=== PATIENT | male | born 1965 | race Two or more races ===

== ENCOUNTER 2020-07-16 06:42 | Day surgery (SDC) | payer BC, OTHER ==
[2020-07-16] MEDS ORDERED: Propofol 200 MG/20 ML SDV ONE (06:47)
[2020-07-16] MEDS ORDERED: fentaNYL 100 MCG/2 ML SDV ONE (06:47)
[2020-07-16] MEDS ORDERED: Midazolam 1 MG/ML 2 ML SDV ONE (06:47)
[2020-07-16] MEDS ORDERED: Dextrose 5%-Lactated Ringers 1,000 ML IV SCH (07:00)
[2020-07-16 09:01] VITALS: BP 136/88; PULSE 81
--- NOTE | 2020-07-27 15:23 | OR ---
DATE OF PROCEDURE: 07/16/2020 SURGEON: Moses Conti MD PREOPERATIVE DIAGNOSIS: Severe gastroesophageal reflux disease with focal changes. POSTOPERATIVE DIAGNOSIS: Severe gastroesophageal reflux disease with: 1. Generally inflamed laryngopharynx. 2. Diffuse gastritis secondary to diabetic gastroparesis with large intragastric bezoar. OPERATIVE PROCEDURE: Esophagogastroduodenoscopy with: 1. Biopsy of the esophagogastric junction for histologic evaluation. 2. Biopsies of antrum for CLOtest. ANESTHESIA: IV sedation. INDICATION FOR PROCEDURE: This is a 55-year-old male presenting with ongoing vocal changes. These were thought be related to reflux disease. He does have quite a bit in the way of ongoing heartburn, despite ongoing medical management. The plan is to proceed with upper GI endoscopy with biopsies as indicated. Potential risks including bleeding and perforation were discussed, and the patient wishes to proceed. DETAILS OF PROCEDURE: The patient was taken to the operating room and placed in a left lateral decubitus position. IV sedation was administered, after which the upper GI endoscope was passed orally through the length of the esophagus and into the stomach with retroflexion view in the fundus, and thereafter, through the pyloric channel and into the proximal duodenum. Findings included generalized redness of the hypopharynx and larynx, consistent with the ongoing reflux disease. Otherwise, there were no anatomic abnormalities per se present. The upper esophageal sphincter and esophageal body were unremarkable. As one passed through the EG junction, the patient did have quite a bit in the way of inflammation above a hiatal hernia measuring around 3 cm. There was no obvious upward extension of the gastroesophageal junction mucosal line, and no stricturing present. Within the stomach, the patient had a strikingly large gastric bezoar. The volume of this was probably in excess of 1 cup and contained vegetable-type matter. The scope could be gradually passed around this. There was some diffuse gastritis, probably related to the presence of the bezoar. The pyloric channel and duodenum to the junction of the 3rd and 4th portions were otherwise unremarkable other than for he did have actually some food still within the duodenum. At this point, biopsies were obtained from the antrum and sent for CLOtest for H pylori. Multiple biopsies were then obtained from the esophagogastric junction and sent for histologic evaluation. Minimal bleeding from the biopsy site was seen, and the procedure was then concluded. At this point, the patient obviously has quite severe diabetic gastroparesis. This will likely be, if untreated surgically, an ongoing problem for the remainder of his life. After discussion of the situation with the patient and his son, the plan will be to proceed with a proximal gastrectomy with Yasmeen-en-Y reconstruction. This should bypass most of the stomach and allow more adequate GI tract function. This will be done with an open approach so as to allow evacuation of the bezoar contents. One good side effect of this would be that he will likely have marked improvement or possibly remission of his type 2 diabetes. This was all reviewed with the patient, and we will schedule this procedure for next Sunday. Moses Conti MD /[id number]
== END 2020-07-16 10:04 | disposition home or self-care (01) ==
LOC: JP.SDS 06:42
PROVIDERS: ATTEND Surgery
DX: K22.70 Barrett's esophagus without dysplasia (principal); K21.0 Gastro-esophageal reflux disease with esophagitis; K29.50 Unspecified chronic gastritis without bleeding; E11.43 Type 2 diabetes mellitus with diabetic autonomic (poly)neuropathy; K31.84 Gastroparesis; T18.2XXA Foreign body in stomach, initial encounter; J39.2 Other diseases of pharynx; J38.7 Other diseases of larynx; K44.9 Diaphragmatic hernia without obstruction or gangrene
CPT/HCPCS: 43239; 87081; 88305; J2250; J2704; J3010; J7121

== ENCOUNTER 2020-07-20 09:45 | Inpatient (IN) | payer BC ==
[2020-07-20] MEDS ORDERED: Neostigmine Methylsulfate 1 MG/ML 5 ML Syringe ONE (10:00)
[2020-07-20] MEDS ORDERED: Glycopyrrolate 0.2 MG/ML 5 ML MDV ONE (10:00)
[2020-07-20] MEDS ORDERED: Rocuronium 50 MG/5 ML Vial ONE (10:00)
[2020-07-20] MEDS ORDERED: Succinylcholine 200 MG/10 ML MDV ONE (10:00)
[2020-07-20] MEDS ORDERED: Ondansetron 4 MG/2 ML SDV ONE (10:00)
[2020-07-20] MEDS ORDERED: Dexamethasone 4 MG/ML SDV ONE (10:00)
[2020-07-20] MEDS ORDERED: fentaNYL 250 MCG/5 ML SDV ONE ×3 (10:00→14:44)
[2020-07-20] MEDS ORDERED: Propofol 200 MG/20 ML SDV ONE (10:00)
[2020-07-20] MEDS ORDERED: Scopolamine 1.5 MG Transdermal Patch TOP SCH (10:30)
[2020-07-20] MEDS ORDERED: Acetaminophen 500 MG Tab PO ONE (10:30)
[2020-07-20] MEDS ORDERED: Celecoxib 200 MG Cap PO ONE (10:30)
[2020-07-20] MEDS ORDERED: Ketamine 500 MG/5 ML MDV IV SCH (10:45)
[2020-07-20] MEDS ORDERED: Ketamine 50 MG in Sodium Chloride 0.9% 49.5 ML IV SCH (10:45)
[2020-07-20] MEDS ORDERED: Magnesium Sulfate 2.4 GM in Sodium Chloride 0.9% 100 ML IV SCH (10:45)
[2020-07-20] MEDS ORDERED: Ropivacaine 40 ML, dexAMETHasone 8 MG, EPINEPHrine 0.4 MG, Sodium Chloride 0.9% 37.6 ML NERVRT SCH ×4 (10:45)
[2020-07-20] MEDS ORDERED: Dextrose 5%-Lactated Ringers 1,000 ML IV SCH ×2 (10:45→16:00)
[2020-07-20] MEDS ORDERED: cefOXitin 2 GM in Sodium Chloride 0.9% 50 ML IV ONE (10:45)
[2020-07-20] MEDS ORDERED: Magnesium Sulfate 3.8 GM in Sodium Chloride 0.9% 250 ML IV ONE (11:15)
[2020-07-20] MEDS ORDERED: Naloxone 0.4 MG/ML SDV IVPUSH PRN ×2 (11:55→16:34)
[2020-07-20] MEDS ORDERED: HYDROmorphone/Normal Saline 15 MG/30 ML PCA IV PRN (11:55)
[2020-07-20] MEDS: Meropenem 500 MG SDV ONE ×2 (12:59→14:37)
[2020-07-20] MEDS ORDERED: Naloxone 0.4 MG/ML SDV IV PRN (13:00)
[2020-07-20] MEDS ORDERED: Labetalol 20 MG/4 ML Syringe ONE (14:21)
[2020-07-20] MEDS: Insulin Lispro 100 Unit/ML 3 ML KwikPen SUBCUT PRN ×2 (15:50→22:00)
[2020-07-20] MEDS ORDERED: 50% Dextrose in Water 50 ML Syringe IVPUSH PRN (16:00)
[2020-07-20] MEDS ORDERED: Ondansetron 4 MG/2 ML SDV IVPUSH PRN ×2 (16:00→16:34)
[2020-07-20] MEDS ORDERED: diphenhydrAMINE 50 MG/ML SDV IVPUSH PRN ×2 (16:00→16:34)
[2020-07-20] MEDS ORDERED: Calcium Gluconate 10% 1 GM/10 ML SDV IVPUSH PRN (16:00)
[2020-07-20] MEDS ORDERED: Lactated Ringers 1,000 ML IV SCH (16:00)
[2020-07-20] MEDS ORDERED: Acetaminophen 500 MG Tab PO PRN (16:00)
[2020-07-20] MEDS ORDERED: Metoclopramide 10 MG/2 ML SDV IVPUSH PRN (16:00)
[2020-07-20] MEDS ORDERED: Albuterol/Ipratropium 3.0-0.5 MG/3 ML Neb Soln INH PRN (16:00)
[2020-07-20] MEDS ORDERED: Glucagon,Human Recombinant 1 MG Vial IM PRN (16:00)
[2020-07-20] MEDS ORDERED: diphenhydrAMINE 25 MG Cap PO PRN (16:34)
[2020-07-20] MEDS ORDERED: Morphine PF 150 MG/30 ML PCA Syringe IV PRN (16:45)
[2020-07-20] MEDS: Acetaminophen 500 MG Tab PO SCH (18:36)
[2020-07-20] MEDS: MVI, Adult with Vitamin K 10 ML, Thiamine 200 MG, Chromium/Copper/Mang/Selen/Zn 1 ML in... IV SCH ×4 (18:39)
[2020-07-20] MEDS: Cyclobenzaprine 10 MG Tab PO PRN (19:07)
[2020-07-20] MEDS: cefOXitin 2 GM in Sodium Chloride 0.9% 50 ML IV SCH (19:47)
[2020-07-20] MEDS: Pantoprazole 40 MG Vial IVPUSH SCH (19:47)
[2020-07-20] MEDS: Labetalol 20 MG/4 ML Syringe IVPUSH PRN ×3 (20:27→23:59)
[2020-07-20] MEDS: Heparin Sodium 5,000 Units/ML Vial SUBCUT SCH (21:07)
[2020-07-20] MEDS: Montelukast 5 MG Tab.Chew PO SCH (21:07)
[2020-07-20] MEDS: Albuterol/Ipratropium 3.0-0.5 MG/3 ML Neb Soln INH SCH (21:07)
[2020-07-21] MEDS: cefOXitin 2 GM in Sodium Chloride 0.9% 50 ML IV SCH ×4 (02:28→19:13)
[2020-07-21] MEDS: Acetaminophen 500 MG Tab PO SCH ×3 (02:28→17:56)
[2020-07-21] MEDS: Cyclobenzaprine 10 MG Tab PO PRN ×2 (03:31→16:37)
[2020-07-21] MEDS ORDERED: Iopamidol 612 MG/ML 50 ML SDV PO STA (03:34)
[2020-07-21] MEDS: Albuterol/Ipratropium 3.0-0.5 MG/3 ML Neb Soln INH SCH ×4 (06:59→20:44)
[2020-07-21] MEDS ORDERED: Ondansetron 4 MG Tab.DIS PO PRN (07:35)
[2020-07-21] MEDS: hydrOXYzine HCL 100 MG/2 ML SDV IM PRN ×2 (08:32→18:48)
--- NOTE | 2020-07-21 09:07 | CR ---
[facility] HISTORY: Postbariatric surgery FINDINGS: Patient swallowed water-soluble contrast. Upright views of the abdomen show no evidence of extravasation or obstruction. There is a surgical drain in the left upper quadrant. IMPRESSION: Status post bariatric surgery No extravasation or obstruction seen
[2020-07-21] MEDS: Celecoxib 200 MG Cap PO SCH ×2 (10:00→20:44)
[2020-07-21] MEDS: Aspirin 81 MG Tab.EC PO SCH (10:02)
[2020-07-21] MEDS: SCOPOLAMINE PATCH CHECK TOP SCH (10:02)
[2020-07-21] MEDS: Heparin Sodium 5,000 Units/ML Vial SUBCUT SCH ×2 (10:02→20:44)
[2020-07-21] MEDS: Insulin Lispro 100 Unit/ML 3 ML KwikPen SUBCUT PRN ×2 (10:25→16:30)
--- NOTE | 2020-07-21 13:23 | PN ---
DATE OF SERVICE: 07/21/2020 SUBJECTIVE: Carlos is postoperative day #1. He was using Dilaudid for POLICEWOMAN, but developed a rash, so was changed to morphine POLICEWOMAN. Pain he reports is a continuous 8/10. He does rest and sleep easily. Blood sugar was 185 this morning. Upper GI was normal. Blood pressure was elevated, and he was given labetalol IV per protocol during the night. Afebrile. Oral intake 840. Urine output via Monreal catheter 2125. HANNAH drain put out 100 mL of a light pink drainage. Remainder of review of systems negative for any pertinent positives and negatives. OBJECTIVE: GENERAL: Carlos is a pleasant 55-year-old male. VITAL SIGNS: TPR at 0712 was 98.5, 112, 20. Blood pressure 130/78. HEENT: Negative. NECK: Supple. HEART: Regular rate and rhythm. LUNGS: Clear. ABDOMEN: Dressings dry and intact. Abdominal binder is on. HANNAH as above. EXTREMITIES: SCDs are on, and there is no peripheral edema. ASSESSMENT: 1. Exploratory laparotomy with partial gastrectomy with Yasmeen-en-Y gastrojejunostomy. 2. Repair of paraesophageal diaphragmatic hernia. 3. Needle liver biopsy. POSTOPERATIVE DIAGNOSES: 1. Severe gastroesophageal reflux disease associated with diabetic gastroparesis. 2. Paraesophageal hernia. 3. Marked fatty liver infiltration. Date of procedure: 07/20/2020. Surgeon: Moses Conti MD. PLAN: 1. Discontinue IV of D5 LR. 2. Step 2 gastric bypass diet without cereal. 3. IV LR at 100 mL/hour. 4. Discontinue Monreal catheter. 5. Dietary consult for reinforcement education. 6. Three med cups per hour to set up at bedside and record 1 every 20 minutes. 7. Zofran ODT 4 mg q.4 hours p.r.n. nausea and vomiting. 8. To give Vistaril 100 mg IM now to see if that will help with pain and decrease pulse. 9. To evaluate p.r.n. or in a.m. Nancy De Luna PA-C /[id number]
[2020-07-21] MEDS: MVI, Adult with Vitamin K 10 ML, Thiamine 200 MG, Chromium/Copper/Mang/Selen/Zn 1 ML in... IV SCH ×4 (15:06)
[2020-07-21] MEDS: Pantoprazole 40 MG Vial IVPUSH SCH (20:34)
[2020-07-21] MEDS: Pantoprazole 40 MG Tab.CR PO SCH (20:44)
[2020-07-21] MEDS: Montelukast 5 MG Tab.Chew PO SCH (20:45)
[2020-07-21] MEDS: Lactated Ringers 1,000 ML IV SCH (22:55)
[2020-07-22] MEDS: Acetaminophen 500 MG Tab PO SCH ×3 (01:23→17:08)
[2020-07-22] MEDS: Cyclobenzaprine 10 MG Tab PO PRN ×2 (01:23→22:01)
[2020-07-22] MEDS: Albuterol/Ipratropium 3.0-0.5 MG/3 ML Neb Soln INH SCH ×4 (06:58→21:49)
[2020-07-22] MEDS: Docusate Sodium 100 MG Cap PO SCH ×2 (08:04→21:46)
[2020-07-22] MEDS: Aspirin 81 MG Tab.EC PO SCH (08:04)
[2020-07-22] MEDS: Celecoxib 200 MG Cap PO SCH ×2 (08:04→21:46)
[2020-07-22] MEDS: Bisacodyl 5 MG Tab PO SCH ×2 (08:04→21:47)
[2020-07-22] MEDS: Heparin Sodium 5,000 Units/ML Vial SUBCUT SCH ×2 (08:05→21:47)
[2020-07-22] MEDS: Lactated Ringers 1,000 ML IV SCH (08:05)
--- NOTE | 2020-07-22 08:37 | PN ---
DATE OF SERVICE: 07/22/2020 SUBJECTIVE: Carlos is postoperative day #2. Blood pressures have stabilized and been normal. He has been afebrile. He received dietary instruction yesterday. Oral intake was 2870 and urine output 2300. HANNAH drain put out 50 mL of a serosanguineous drainage. He has been up, ambulating. Continues to report an increased amount of pain using the HELP DESK ASSOCIATE. REVIEW OF SYSTEMS: Remainder of review of systems negative for any pertinent positives and negatives. OBJECTIVE: GENERAL: Carlos is a pleasant 55-year-old male. VITAL SIGNS: TPR at 0700 is 99.5; 125; 18; blood pressure 156/90. It had been running 135 to 140/76. HEENT: Negative. NECK: Supple. HEART: Regular rate and rhythm. LUNGS: Clear. ABDOMEN: Aquacel dressing dry and intact. HANNAH drain intact. Abdominal binder is on. EXTREMITIES: Without peripheral edema. LABORATORY DATA: Last blood sugar was 183. ASSESSMENT: 1. Exploratory laparotomy with partial gastrectomy with Yasmeen-en-Y gastrojejunostomy. 2. Repair of paraesophageal diaphragmatic hernia. 3. Needle liver biopsy. POSTOPERATIVE DIAGNOSES: 1. Severe gastroesophageal reflux disease associated with diabetic gastroparesis. 2. Paraesophageal hernia. 3. Marked fatty liver infiltration. 4. Date of procedure: 07/20/2020. Surgeon: Moses Conti MD. PLAN: 1. Discontinue HELP DESK ASSOCIATE, continuous pulse ox. 2. Oxycodone 5 to 10 mg every 4 hours p.r.n. pain. 3. Dulcolax 10 mg b.i.d. orally. 4. Colace 100 mg b.i.d. orally. 5. Continue use of incentive spirometer. 6. We will evaluate p.r.n. or in a.m. Nancy De Luna PA-C /[id number]
[2020-07-22] MEDS ORDERED: Cyanocobalamin (Vitamin B12) 1,000 MCG/ML SDV IM ONE (09:00)
[2020-07-22] MEDS: oxyCODONE 5 MG Tab PO PRN ×3 (09:03→19:40)
[2020-07-22] MEDS: SCOPOLAMINE PATCH CHECK TOP SCH (09:08)
[2020-07-22] MEDS: MVI, Adult with Vitamin K 10 ML, Thiamine 200 MG, Chromium/Copper/Mang/Selen/Zn 1 ML in... IV SCH ×4 (15:13)
[2020-07-22] MEDS: Insulin Lispro 100 Unit/ML 3 ML KwikPen SUBCUT PRN (17:08)
[2020-07-22] MEDS: Pantoprazole 40 MG Tab.CR PO SCH (21:47)
[2020-07-22] MEDS: Montelukast 5 MG Tab.Chew PO SCH (21:47)
[2020-07-23] MEDS: oxyCODONE 5 MG Tab PO PRN ×6 (01:15→21:50)
[2020-07-23] MEDS: Lactated Ringers 1,000 ML IV SCH ×2 (01:55→08:57)
[2020-07-23] MEDS: Acetaminophen 500 MG Tab PO SCH ×3 (01:56→17:40)
[2020-07-23] MEDS: Albuterol/Ipratropium 3.0-0.5 MG/3 ML Neb Soln INH SCH ×4 (06:58→20:35)
[2020-07-23] MEDS: Celecoxib 200 MG Cap PO SCH ×2 (08:59→20:35)
[2020-07-23] MEDS: Aspirin 81 MG Tab.EC PO SCH (08:59)
[2020-07-23] MEDS: Docusate Sodium 100 MG Cap PO SCH ×2 (08:59→20:35)
[2020-07-23] MEDS: Bisacodyl 5 MG Tab PO SCH ×2 (08:59→20:35)
[2020-07-23] MEDS: Heparin Sodium 5,000 Units/ML Vial SUBCUT SCH ×2 (09:00→20:36)
[2020-07-23] MEDS: Magnesium Hydroxide 400 MG/5 ML Susp 30 ML Cup PO SCH ×2 (10:42→20:37)
--- NOTE | 2020-07-23 16:59 | PN ---
DATE OF SERVICE: 07/23/2020 The patient is status post an open partial gastrectomy with Yasmeen-en-Y gastrojejunostomy and repair of paraesophageal hernia and liver biopsy on 07/20/2020. This was done for diabetic gastroparesis along with the paraesophageal hernia and severe associated reflux. Clinically, the patient is doing well. He was on four oral agents for his type 2 diabetes preoperatively and blood sugars running in the 150-160 range, now off all those medications. He still has not moved his bowels as of yet and is feeling somewhat bloated. We will work on getting the bowels going today and then probably remove the HANNAH drain. He is switched over to oral pain medication. If his bowels are moving, he can probably be discharged home sometime during the weekend. Moses Conti MD /[id number]
[2020-07-23] MEDS: MVI, Adult with Vitamin K 10 ML, Thiamine 200 MG, Chromium/Copper/Mang/Selen/Zn 1 ML in... IV SCH ×4 (17:41)
[2020-07-23] MEDS: Montelukast 5 MG Tab.Chew PO SCH (20:38)
[2020-07-23] MEDS: Pantoprazole 40 MG Tab.CR PO SCH (20:38)
[2020-07-24] MEDS: Acetaminophen 500 MG Tab PO SCH ×3 (02:47→17:11)
[2020-07-24] MEDS: oxyCODONE 5 MG Tab PO PRN ×3 (02:49→21:29)
[2020-07-24] MEDS: Lactated Ringers 1,000 ML IV SCH (03:48)
[2020-07-24] MEDS: Albuterol/Ipratropium 3.0-0.5 MG/3 ML Neb Soln INH SCH ×4 (07:27→21:31)
[2020-07-24] MEDS: Aspirin 81 MG Tab.EC PO SCH (08:31)
[2020-07-24] MEDS: Magnesium Hydroxide 400 MG/5 ML Susp 30 ML Cup PO SCH ×3 (08:31→21:34)
[2020-07-24] MEDS: Heparin Sodium 5,000 Units/ML Vial SUBCUT SCH ×2 (08:31→21:23)
[2020-07-24] MEDS: Celecoxib 200 MG Cap PO SCH ×2 (08:32→21:22)
[2020-07-24] MEDS: Docusate Sodium 100 MG Cap PO SCH ×2 (08:32→21:22)
[2020-07-24] MEDS: Bisacodyl 5 MG Tab PO SCH ×2 (08:32→21:23)
[2020-07-24] MEDS: MVI, Adult with Vitamin K 10 ML, Thiamine 200 MG, Chromium/Copper/Mang/Selen/Zn 1 ML in... IV SCH ×4 (17:11)
[2020-07-24] MEDS: Montelukast 5 MG Tab.Chew PO SCH (21:23)
[2020-07-24] MEDS: Pantoprazole 40 MG Tab.CR PO SCH (21:23)
[2020-07-25] MEDS: Acetaminophen 500 MG Tab PO SCH (01:37)
[2020-07-25] MEDS: oxyCODONE 5 MG Tab PO PRN (01:37)
[2020-07-25] MEDS: Albuterol/Ipratropium 3.0-0.5 MG/3 ML Neb Soln INH SCH (07:47)
[2020-07-25] MEDS: Docusate Sodium 100 MG Cap PO SCH (08:22)
[2020-07-25] MEDS: Aspirin 81 MG Tab.EC PO SCH (08:22)
[2020-07-25] MEDS: Heparin Sodium 5,000 Units/ML Vial SUBCUT SCH (08:23)
[2020-07-25] MEDS: Bisacodyl 5 MG Tab PO SCH (08:23)
[2020-07-25] MEDS: Celecoxib 200 MG Cap PO SCH (08:23)
[2020-07-25] MEDS: Magnesium Hydroxide 400 MG/5 ML Susp 30 ML Cup PO SCH ×2 (08:23→08:25)
[2020-07-25] MEDS ORDERED: Bisacodyl 10 MG Supp RECTAL ONE (08:45)
[2020-07-25 09:35] VITALS: BP 149/78; PULSE 99
--- NOTE | 2020-07-25 15:33 | CONS ---
DATE OF SERVICE: 07/25/2020 REFERRING PHYSICIAN: CONSULTING PHYSICIAN: Shad Babin MD REASON FOR CONSULTATION: Evaluation after partial gastrectomy. HISTORY OF PRESENT ILLNESS: A pleasant 55-year-old male who underwent a partial gastrectomy for diabetic gastroparesis on 07/20/2020. The patient is doing well at this time. Pain is well controlled. No nausea, vomiting, shortness of breath, or chest pain. He has not had a bowel movement yet. His pain is 1 to 2/10 and well controlled. PAST MEDICAL HISTORY: Gastroesophageal reflux disease, seasonal allergies, type 2 diabetes, not currently using insulin and had not used it from what he tells me for approximately 20 years. However, multiple orthopedic injuries such as rotator cuff repair, shoulder injuries, finger injuries of left hand. Please see review of systems for further details. REVIEW OF SYSTEMS: GENERAL: The patient is appropriate for condition. HEENT: History of allergies. CARDIOVASCULAR: Hyperlipidemia. RESPIRATORY: No history of asthma or shortness of breath. GASTROINTESTINAL: As described above. GENITOURINARY: No dysuria. NEUROLOGICAL: No significant anxiety. The remainder of review of systems was reviewed and is negative. PHYSICAL EXAMINATION: VITAL SIGNS: Temperature 98.2, blood pressure 144/81. Pulse 109 per chart, rechecked at 99. Respirations 16, 95% on room air. HEENT: Pupils are equal. NECK: Supple. LUNGS: Clear. CARDIOVASCULAR: Regular rhythm and rate. RESPIRATORY: Lungs are clear to auscultation bilaterally. ABDOMEN: Incision healing well as dressing was removed. IMAGING: I did view this and no recent chest x-ray noted. An upper GI was performed without abnormality. ASSESSMENT: Status post partial gastrectomy. PLAN: The patient is doing well. We are awaiting a bowel movement. He is passing gas. We will saline lock him today. Continue on Lovenox. Anticipate discharge in next 24 hours. Shad Babin MD /[id number]
--- NOTE | 2020-07-26 10:28 | PN ---
DATE OF SERVICE: 07/25/2020 SUBJECTIVE: The patient is doing very well today. Pain is well controlled. No nausea, vomiting, shortness of breath, or chest pain. Having bowel movements. OBJECTIVE: VITAL SIGNS: Stable. He is afebrile per nursing report. CARDIOVASCULAR: Regular rhythm and rate. RESPIRATORY: Lungs are clear to auscultation bilaterally. SKIN: Incision is healing well. ASSESSMENT: Status post partial gastrectomy. PLAN: The patient will be discharged today. Please see discharge summary for further details. Of note, the patient will be dispensed a small amount of schedule II prescription. No lifting more than 30 pounds x30 days and step 2 diet. Shad Babin MD /[id number]
--- NOTE | 2020-07-28 13:44 | OR ---
DATE OF PROCEDURE: 07/20/2020 SURGEON: Moses Conti MD PREOPERATIVE DIAGNOSIS: Severe gastroesophageal reflux disease associated with diabetic gastroparesis, enlarged gastric bezoar. POSTOPERATIVE DIAGNOSES: 1. Severe gastroesophageal reflux disease associated with diabetic gastroparesis, enlarged gastric bezoar. 2. Paraesophageal diaphragmatic hernia. 3. Marked fatty infiltration of liver. OPERATIVE PROCEDURES: Exploratory laparotomy with: 1. Partial gastrectomy with Yasmeen-en-Y gastrojejunostomy (09104). 2. Repair of paraesophageal diaphragmatic hernia (64343). 3. Dex-Cut needle liver biopsy (70263). ANESTHESIA: General. INDICATION FOR PROCEDURE: This is a 55-year-old male presenting with severe reflux. On endoscopy last week was noted to have quite severe inflammation of the hypopharynx and larynx, which has resulted in poor voice quality and moderate-sized hiatal hernia and inflammation of the distal esophagus. The patient had a very large gastric bezoar with this occupying perhaps a full cup of retained gastric contents. Given this, the patient would be a poor candidate for Janet fundoplication, due to the poor gastric emptying, and would be best treated by means of a partial gastrectomy with Yasmeen-en-Y reconstruction, which would have the effect of clearing his reflux and also avoiding the problem of having to use the stomach. This would also have some beneficial effects with regard to his type 2 diabetes mellitus with the Yasmeen-en-Y reconstruction. Potential risks of the procedure, including bleeding, infection, injury to underlying viscera, problems with leaks over gastrojejunostomy or otherwise of the GI tract, as well as possibility of cardiopulmonary, septic, or hemorrhagic complications leading to were all discussed, and the patient wishes to proceed. DETAILS OF PROCEDURE: The patient was taken to the operating room. After general endotracheal anesthesia was induced, a Monreal catheter was inserted, and the abdomen prepped and draped. A midline incision from the xiphoid to the umbilicus was made and carried down through the full-thickness abdominal wall. Upon entering the abdomen, the patient was noted to have a quite strikingly enlarged liver, which was grossly fatty infiltrated. This was likely related to some degree of obesity, but more importantly the type 2 diabetes mellitus. Dex-Cut needle biopsy was obtained from the left lobe of the liver. Minimal bleeding from the biopsy site was seen and the procedure then concluded. At this point, the stomach was evaluated. This contained as expected a large amount of boggy material within it, consistent with a bezoar. The liver was retracted medially, and the stomach roughly 2 fingerbreadths below the esophagogastric junction was then divided with a DEQUAN black loads. This portion of the stomach was then opened and the bezoar material then evacuated. That portion of the stomach was then resected as well and sent as a separate specimen. The patient did have a paraesophageal diaphragmatic hernia with prolapse of some omentum in a plane anterior and to the left of the course of the esophagus. This was reduced and peritoneum overlying it incised and reflected downward. An anterior repair of the diaphragmatic hernia was then accomplished with 0 Ethibond sutures reinforced with PTFE pledgets. The Yasmeen limb was then prepared. To make this a relatively potent anti-diabetic operation, the ligament of Treitz was identified and small bowel was then traced out 200 cm distal to the ligament of Treitz, where it was divided transversely with the DEQUAN stapler. The small bowel was then traced out an additional 150 cm, where the [id number] enteroenterostomy was accomplished with an internal firing of the Endo-DEQUAN 60 mm stapler. Common opening was then closed transversely with the same stapler and the angles of anastomosis and mesenteric defect approximated with some 3-0 Vicryl stitch. The Yasmeen limb was then routed through a retrocolic approach as we were dividing an avascular portion of the transverse mesocolon. This came up to the divided proximal stomach without significant tension. We had hoped to use a 28 mm EEA stapler in this case, which would leave less problems with dysphagia and stricturing, but the small bowel size would not accommodate a stapler of that size. Therefore, the anvil of a 25 mm EEA stapler was attached to a [place] sump-type tube, brought down through the mouth, taken out of the small opening in the divided end of the stomach, and the main body of the EEA stapler was then passed into the opening at the end of the Yasmeen limb, brought up the anvil and united with it, thus creating the gastrojejunostomy. Upon removal of the stapler, double donuts of mucosa were noted within it. The small bowel was closed off with a vascular staple line. Gastrojejunostomy was reinforced with some 3-0 Vicryl seromuscular stitch, along with fibrin sealant. The point where the small bowel passed through the mesocolon was reinforced with some 3-0 Vicryl stitch to avoid internal hernia problems. The abdomen was then irrigated with antibiotic-containing saline solution. No further problems were noted. A single Deshawn-Andino drain was placed through a stab wound in the left subcostal area and positioned up against the gastrojejunostomy and from there up into the splenic fossa. The midline fascia was then approximated with #2 Vicryl stitch, the subcutaneous tissue was approximated with some 3-0 Vicryl stitch, and the skin with carolynn. Dressing was applied. The patient was taken to the recovery room in a satisfactory condition. There were no evident complications. Moses Conti MD /[id number]
--- NOTE | 2020-07-28 15:02 | DISCH ---
FINAL DIAGNOSES: 1. Severe gastroesophageal reflux disease associated with diabetic gastroparesis and a large amount of retained gastric bezoar. 2. Paraesophageal diaphragmatic hernia. 3. Marked fatty infiltration of the liver. SECONDARY DIAGNOSES: 1. Type 2 diabetes mellitus. 2. Hyperlipidemia. 3. History of benign prostatic hypertrophy. OPERATIVE PROCEDURES: Exploratory laparotomy with: 1. Partial gastrectomy with Yasmeen-en-Y gastrojejunostomy. 2. Repair of a paraesophageal diaphragmatic hernia. 3. Needle liver biopsy that was done on 07/20/2020. SUMMARY: This is a 55-year-old, who last week was noted to have a large bezoar associated with extremely severe gastroesophageal reflux disease. He obviously has a significant element of diabetic gastroparesis. The reflux disease was such that he was becoming hoarse due to ongoing reflux and regurgitation. After preop evaluation and discussion, he wished to proceed with a proximal partial gastrectomy with Yasmeen-en-Y reconstruction, which would alleviate problems both with gastroparesis as well as the reflux disease. This, along with a repair of a paraesophageal hernia, was undertaken on the date of admission. The patient also was noted to have a fatty infiltrated liver, likely related to the diabetes, and postoperatively, he had no significant problems. He was a little slow to get his bowels moving, maintaining his hospitalization one additional day. DISCHARGE MEDICATIONS: He was discharged home on his usual medications other than we will be off all of his diabetic medications, which include 4 oral agents. With this, his blood sugars at the time of discharge were running in the mid 100s, again without any specific diabetic treatment. Otherwise, he will be continuing his usual other medications plus oxycodone 5 mg q.6 hours p.r.n. pain, #10. FOLLOWUP: The patient will be following up with Dr. Conti at [facility] on 08/02/2020.
== END 2020-07-25 10:29 | disposition home or self-care (01) | DRG 220 ==
LOC: EDSTATUS 09:45 → JP.MS 10:17 → JP.SDS 10:17 → JP.MS 15:20
PROVIDERS: ADMIT Surgery; ATTEND Surgery
PROC: 0D160ZA Bypass Stomach to Jejunum, Open Approach (ICD-10-PCS; principal; 2020-07-20)
PROC: 0FB20ZX Excision of Left Lobe Liver, Open Approach, Diagnostic (ICD-10-PCS; principal; 2020-07-20)
PROC: 0BQT0ZZ Repair Diaphragm, Open Approach (ICD-10-PCS; principal; 2020-07-20)
PROC: 0DB60ZZ Excision of Stomach, Open Approach (ICD-10-PCS; principal; 2020-07-20)
DX: K21.9 Gastro-esophageal reflux disease without esophagitis (principal); E11.43 Type 2 diabetes mellitus with diabetic autonomic (poly)neuropathy; K31.84 Gastroparesis; E11.65 Type 2 diabetes mellitus with hyperglycemia; E78.2 Mixed hyperlipidemia; J30.89 Other allergic rhinitis; Z79.4 Long term (current) use of insulin; Z79.899 Other long term (current) drug therapy; Z79.82 Long term (current) use of aspirin; N40.0 Benign prostatic hyperplasia without lower urinary tract symptoms; J30.9 Allergic rhinitis, unspecified; M75.41 Impingement syndrome of right shoulder; G57.62 Lesion of plantar nerve, left lower limb; Z87.891 Personal history of nicotine dependence; K44.9 Diaphragmatic hernia without obstruction or gangrene
CPT/HCPCS: 36415; 74240; 74240-26; 80053; 82728; 82962; 83735; 83880; 84100; 85025; 85027; 88305; 88307; 88313; 93005; 93010; 94640; 94762; A9270-GY; C9113; J0171; J0330; J0694; J1100; J1170; J1200; J1644; J1815; J2185; J2270; J2405; J2704; J2710; J2795; J3010; J3410; J3411; J3420; J3475; J3490; J7050; J7120; J7121; J7620-GY; Q9967

== ENCOUNTER 2020-08-14 06:30 | Day surgery (SDC) | payer BC, OTHER ==
[2020-08-14] MEDS ORDERED: Glycopyrrolate 0.2 MG/ML 2 ML SDV IVPUSH ONE (07:00)
[2020-08-14] MEDS ORDERED: Lactated Ringers 1,000 ML IV ONE (07:00)
[2020-08-14] MEDS ORDERED: Cyanocobalamin (Vitamin B12) 1,000 MCG/ML SDV IM ONE ×2 (07:00→07:30)
[2020-08-14] MEDS ORDERED: Dexamethasone 4 MG/ML SDV ONE (07:04)
[2020-08-14] MEDS ORDERED: fentaNYL 100 MCG/2 ML SDV ONE (07:04)
[2020-08-14] MEDS ORDERED: Midazolam 1 MG/ML 2 ML SDV ONE (07:04)
[2020-08-14] MEDS ORDERED: Propofol 200 MG/20 ML SDV ONE (07:04)
[2020-08-14] MEDS ORDERED: MVI, Adult with Vitamin K 10 ML, Thiamine 200 MG, Chromium/Copper/Mang/Selen/Zn 1 ML in... IV ONE ×4 (08:00)
[2020-08-14 08:58] VITALS: BP 134/76; PULSE 75
--- NOTE | 2020-08-18 13:32 | OR ---
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 OPERATIVE PROCEDURE: Upper GI endoscopy with dilation of gastrojejunostomy (21668). ANESTHESIA: IV sedation. INDICATION FOR PROCEDURE: The patient is status post recent partial proximal gastrectomy with Yasmeen-en-Y gastrojejunostomy for treatment of combined severe reflux with diabetic- related gastroparesis. He presents now with symptoms suggestive of stricturing. The plan is to proceed with upper GI endoscopy with dilation as indicated. Potential risks including bleeding and perforation were discussed, and the patient wishes to proceed. DETAILS OF PROCEDURE: The patient was taken to the operating room and placed in a left lateral decubitus position. IV sedation was administered, after which the upper GI endoscope was passed orally through the length of the esophagus into the gastric pouch. The patient was noted to have a fairly tight stricture of the gastrojejunostomy. Using fluoroscopic surveillance, a Bard gastrointestinal catheter was then centered across the anastomosis and inflated to 30-[place] size. This was held in position for 1 minute, after which balloon catheter was deflated and withdrawn. The scope was able to be passed through the anastomosis. No complications were noted and the procedure was then concluded. The patient will likely need to have some additional dilations in the upcoming weeks and is instructed to call when he feels things are getting tight. Moses Conti MD /[id number]
== END 2020-08-14 08:58 | disposition home or self-care (01) ==
LOC: JP.SDS 06:30 → EEVIPCON 06:30 → JP.SDS 08:58
PROVIDERS: ATTEND Surgery
DX: K94.29 Other complications of gastrostomy (principal); K21.9 Gastro-esophageal reflux disease without esophagitis; E11.43 Type 2 diabetes mellitus with diabetic autonomic (poly)neuropathy; K31.84 Gastroparesis; Z01.812 Encounter for preprocedural laboratory examination; Z20.828 Contact with and (suspected) exposure to other viral communicable diseases; Z98.84 Bariatric surgery status
CPT/HCPCS: 36415; 43245; 80053; 83735; 84100; 85027; 87635; J1100; J2250; J2704; J3010; J3411; J3420; J3490; J7120; U0002

== ENCOUNTER 2020-08-23 09:46 | Day surgery (SDC) | payer BC, OTHER ==
[2020-08-23] MEDS ORDERED: Glycopyrrolate 0.2 MG/ML 2 ML SDV IVPUSH ONE (10:15)
[2020-08-23] MEDS ORDERED: Cyanocobalamin (Vitamin B12) 1,000 MCG/ML SDV IM ONE (10:15)
[2020-08-23] MEDS ORDERED: Lactated Ringers 1,000 ML IV ONE (10:15)
[2020-08-23] MEDS ORDERED: Propofol 200 MG/20 ML SDV ONE (10:28)
[2020-08-23] MEDS ORDERED: fentaNYL 100 MCG/2 ML SDV ONE (10:29)
[2020-08-23] MEDS ORDERED: Midazolam 1 MG/ML 2 ML SDV ONE (10:29)
[2020-08-23] MEDS ORDERED: Dexamethasone 4 MG/ML SDV ONE ×2 (10:52)
[2020-08-23] MEDS ORDERED: MVI, Adult with Vitamin K 10 ML, Thiamine 200 MG, Chromium/Copper/Mang/Selen/Zn 1 ML in... IV ONE ×4 (11:15)
[2020-08-23 13:09] VITALS: BP 137/75; PULSE 67
--- NOTE | 2020-08-27 15:07 | OR ---
DATE OF PROCEDURE: 08/23/2020 SURGEON: Moses Conti MD PREOPERATIVE DIAGNOSIS: Probable stricture at esophagojejunostomy. POSTOPERATIVE DIAGNOSIS: Stricture at esophagojejunostomy. OPERATIVE PROCEDURE: Upper GI endoscopy with dilation of esophagojejunostomy. ANESTHESIA: IV sedation. INDICATION FOR PROCEDURE: This a 55-year-old status post an esophagogastrectomy with Yasmeen- en-Y reconstruction presenting with symptoms of stricturing at his esophagojejunal anastomosis and was treated with upper GI endoscopy with dilation as indicated. Potential risks including bleeding and perforation were discussed, and the patient wishes to proceed. DETAILS OF PROCEDURE: The patient was taken to the operating room, placed in a left lateral decubitus position. IV sedation was administered, after which the upper GI endoscope was passed orally through the length of the esophagus and into the level of esophagojejunal anastomosis. There was a tight stricture in that area with a diameter estimated around 3 to 4 mm. Using fluoroscopic surveillance, a Bard gastrointestinal catheter was inserted across the anastomosis and inflated to 30-[place] size. This was held in position for 1 minute, after which balloon catheter was deflated and withdrawn. The scope was able to be passed through the anastomosis. No complications were noted and the procedure was concluded. The patient was taken to the recovery room in satisfactory condition. The patient at this point is having some additional issues and we will follow actively. Plan to proceed with a repeat endoscopy next week if he continues to have the problem of stricturing. The patient will likely need to have quite a few dilations as the operative procedure was done in a field of quite intense ongoing inflammation resulting in likely aggressive stricture formation pattern postoperatively. Moses Conti MD /[id number]
== END 2020-08-23 13:12 | disposition home or self-care (01) ==
LOC: JP.SDS 09:46
PROVIDERS: ATTEND Surgery
DX: K91.89 Other postprocedural complications and disorders of digestive system (principal); K22.2 Esophageal obstruction
CPT/HCPCS: 43245; J1100; J2250; J2704; J3010; J3411; J3420; J3490; J7120

== ENCOUNTER 2020-08-28 17:33 | Emergency (ER) | payer BC, OTHER ==
[2020-08-28 17:56] VITALS: BP 113/72; PULSE 74
--- NOTE | 2020-08-28 19:16 | EDM.PDOC ---
ED HPI GENERAL MEDICAL PROBLEM - General Chief Complaint: Gastrointestinal Problem Stated Complaint: CHOKING/TROUBLE BREATHING Time Seen by Provider: 08/28/20 18:10 Source of Information: Reports: Patient, Family History Limitations: Reports: No Limitations - History of Present Illness INITIAL COMMENTS - FREE TEXT/NARRATIVE: 55-year-old with difficulty swallowing increasing since his last EGD with dilatation done within the last few weeks, he has another one scheduled for Sunday but is very uncomfortable. Onset: Gradual Duration: Week(s): (Symptoms for the last 2 weeks) Location: Reports: Abdomen, Other (Epigastric) Associated Symptoms: Reports: No Other Symptoms - Related Data Allergies Allergy/AdvReac Type Severity Reaction Status Date / Time ciprofloxacin [From Cipro] Allergy Intermediate Rash Verified 08/28/20 17:58 ciprofloxacin HCl Allergy Intermediate Rash Verified 08/28/20 17:58 [From Cipro] dog dander Allergy Intermediate Other Verified 08/28/20 17:58 cat dander Allergy Mild Other Verified 08/28/20 17:58 pollen extracts Allergy Mild Abdominal Verified 08/28/20 17:58 Pain Home Meds: Home Meds Mecobalamin [B12 Active] 1,000 mcg PO DAILY 08/14/20 [History] Multivitamin [Multi-Vitamin Daily] 1 tab PO DAILY 08/14/20 [History] Past Medical History HEENT History: Reports: Allergic Rhinitis, Impaired Vision, Sinusitis Other HEENT History: wears glasses Gastrointestinal History: Reports: Cholelithiasis, GERD Genitourinary History: Reports: Renal Calculus Musculoskeletal History: Reports: None, Gout Endocrine/Metabolic History: Reports: Diabetes, Type II - Infectious Disease History Infectious Disease History: Reports: Chicken Pox - Past Surgical History HEENT Surgical History: Reports: Other (See Below) Other HEENT Surgeries/Procedures: eye and nose surgery GI Surgical History: Reports: Appendectomy, Cholecystectomy, EGD, Janet Fundoplication, Other (See Below) Other GI Surgeries/Procedures: gastric bypass done for gastroparesis Male Surgical History: Reports: None Endocrine Surgical History: Reports: None Musculoskeletal Surgical History: Reports: Other (See Below), Shoulder Surgery Social & Family History - Family History Family Medical History: Noncontributory - Tobacco Use Smoking Status *Q: Never Smoker - Caffeine Use Caffeine Use: Reports: Coffee ED ROS GENERAL - Review of Systems Review Of Systems: See Below Constitutional: Denies: Fever, Chills Respiratory: Denies: Shortness of Breath Cardiovascular: Reports: Chest Pain GI/Abdominal: Reports: Abdominal Pain, Difficulty Swallowing, Nausea ED EXAM, GENERAL - Physical Exam Exam: See Below Exam Limited By: No Limitations General Appearance: Alert, No Apparent Distress Throat/Mouth: Normal Inspection Respiratory/Chest: No Respiratory Distress GI/Abdominal: Soft, Non-Tender, Other (Surgical incision is healing nicely) Course - Vital Signs Last Recorded V/S: Last Vital Signs Temp 97 F 08/28/20 17:54 Pulse 74 08/28/20 17:54 Resp 16 08/28/20 17:54 BP 113/72 08/28/20 17:54 Pulse Ox 96 08/28/20 17:54 - Orders/Labs/Meds Orders: Active Orders 24 hr Category Date Time Status CORONAVIRUS COVID-19, DESTINEE Stat Lab 08/28/20 18:27 Ordered - Re-Assessments/Exams Free Text/Narrative Re-Assessment/Exam: 08/28/20 19:[address] Conti, he recommended moving the EGD up to tomorrow morning rather than Sunday. This was acceptable to the patient, he will return tomorrow for his procedure which was set up by nursing. A COVID test was negative 2 days ago, he does not need another one for the procedure tomorrow. Departure - Departure Time of Disposition: 19:23 Disposition: Home, Self-Care 01 Clinical Impression: Dysphasia, Esophageal stricture - Discharge Information Instructions: Esophageal Stricture Referrals: Caty Tavera DO [Primary Care Provider] - Forms: ED Department Discharge Care Plan Goals: Return tomorrow morning as directed for your procedure. Nothing by mouth after midnight. Sepsis Event Note (ED) - Evaluation Sepsis Screening Result: No Definite Risk - Focused Exam Vital Signs: Vital Signs Temp Pulse Resp BP Pulse Ox 08/28/20 17:54 97 F 74 16 113/72 96 - My Orders Last 24 Hours: My Active Orders 08/28/20 18:27 CORONAVIRUS COVID-19, DESTINEE Stat - Assessment/Plan Last 24 Hours: My Active Orders 08/28/20 18:27 CORONAVIRUS COVID-19, DESTINEE Stat
== END 2020-08-28 19:24 | disposition home or self-care (01) ==
LOC: JP.ED 17:33
DX: K22.2 Esophageal obstruction (principal); R13.10 Dysphagia, unspecified; E11.9 Type 2 diabetes mellitus without complications; Z88.1 Allergy status to other antibiotic agents; Z91.048 Other nonmedicinal substance allergy status
CPT/HCPCS: 99283

== ENCOUNTER 2020-08-29 06:37 | Inpatient (IN) | payer BC, OTHER ==
[2020-08-29] MEDS ORDERED: Lactated Ringers 1,000 ML IV ONE ×2 (08:00→09:30)
[2020-08-29] MEDS ORDERED: Cyanocobalamin (Vitamin B12) 1,000 MCG/ML SDV IM ONE (08:00)
[2020-08-29] MEDS ORDERED: Metoclopramide 10 MG/2 ML SDV ONE (08:34)
[2020-08-29] MEDS ORDERED: Metoclopramide 10 MG/2 ML SDV IVPUSH ONE (08:34)
[2020-08-29] MEDS ORDERED: MVI, Adult with Vitamin K 10 ML, Chromium/Copper/Mang/Selen/Zn 1 ML, Thiamine 200 MG in... IV ONE ×4 (09:00)
[2020-08-29] MEDS: Ondansetron 4 MG Tab.DIS PO PRN ×3 (09:48→19:38)
[2020-08-29] MEDS: Acetaminophen 500 MG Tab PO PRN (09:50)
[2020-08-29] MEDS: HYDROmorphone 2 MG Tab PO PRN ×2 (09:50→23:17)
[2020-08-29] MEDS ORDERED: Scopolamine 1.5 MG Transdermal Patch TOP SCH (10:00)
[2020-08-29] MEDS: Metoclopramide 10 MG Tab PO PRN ×2 (12:01→21:15)
[2020-08-29] MEDS: Dextrose 5%-Lactated Ringers 1,000 ML with MVI, Adult with Vitamin K 10 ML, Chromium/Co... IV SCH ×6 (12:11→19:38)
[2020-08-29] MEDS: LORazepam 2 MG/ML SDV IVPUSH PRN ×3 (14:27→23:26)
[2020-08-30] MEDS: Dextrose 5%-Lactated Ringers 1,000 ML with MVI, Adult with Vitamin K 10 ML, Chromium/Co... IV SCH ×3 (03:54)
[2020-08-30] MEDS ORDERED: LORazepam 2 MG/ML SDV IVPUSH PRN (07:07)
[2020-08-30] MEDS: Ondansetron 4 MG/2 ML SDV IVPUSH SCH ×5 (07:33→23:15)
[2020-08-30] MEDS: SCOPOLAMINE PATCH CHECK TOP SCH ×2 (08:15→15:46)
[2020-08-30] MEDS: Metoclopramide 10 MG/2 ML SDV IVPUSH SCH ×3 (08:39→19:57)
--- NOTE | 2020-08-30 10:31 | PN ---
DATE OF SERVICE: 08/30/2020 SUBJECTIVE: Carlos continues to report nausea. Oral intake 240. Had a 75 mL emesis. Urine output 1600. Afebrile, up ambulating. REVIEW OF SYSTEMS: Remainder of review of systems negative for any pertinent positives and negatives. OBJECTIVE: GENERAL: Carlos is a 55-year-old male. He is alert and orientated. VITAL SIGNS: TPR at 0400; 97.4, 95, 16. Blood pressure 157/91. HEENT: Negative. NECK: Supple. HEART: Regular rate and rhythm. LUNGS: Clear. ABDOMEN: Negative. ASSESSMENT: Upper GI with: 1. Dilation of EJA. 2. Placement of covered stent for recurrent stricture at EJA. Date of procedure 08/29/2020. Surgeon: Moses Conti MD. PLAN: 1. Consult dietitian for esophageal stent and reinforcement of step 2 gastric bypass diet. 2. Reglan 10 mg IV q.6 hours scheduled. 3. Zofran 4 mg IV q.4 hours scheduled. 4. Ativan 1 mg IV q.4 hours p.r.n. nausea. 5. We will evaluate p.r.n. or in a.m. Nancy De Luna PA-C /[id number]
[2020-08-30] MEDS: Dextrose 5%-Lactated Ringers 1,000 ML IV SCH ×2 (11:47→20:11)
[2020-08-30] MEDS: Hyoscyamine 0.125 MG Tab.SL SL PRN (15:35)
[2020-08-30] MEDS: Acetaminophen 500 MG Tab PO PRN (20:23)
[2020-08-31] MEDS: Metoclopramide 10 MG/2 ML SDV IVPUSH SCH ×4 (02:27→20:13)
[2020-08-31] MEDS: Dextrose 5%-Lactated Ringers 1,000 ML IV SCH ×4 (03:29→22:15)
[2020-08-31] MEDS: Ondansetron 4 MG/2 ML SDV IVPUSH SCH ×6 (03:30→22:09)
[2020-08-31] MEDS: Hyoscyamine 0.125 MG Tab.SL SL PRN (03:35)
--- NOTE | 2020-08-31 08:18 | PN ---
DATE OF SERVICE: 08/31/2020 SUBJECTIVE: Carlos continues to report inability to swallow. He did have a temp max on 08/30/2020 at 2016 hours of 101.3. Oral intake 330. Urine output 1150. He states he is still unable to drink anything without feeling really full and it hurts in the middle of his chest and he burps a lot. REVIEW OF SYSTEMS: Remainder of review of systems negative for any pertinent positives and negatives. OBJECTIVE: GENERAL: Carlos Gentile is a 55-year-old male. He is alert and orientated. VITAL SIGNS: TPR at 0653; 100, 95, 18. Blood pressure 148/78. HEENT: Negative. NECK: Supple. HEART: Regular rate and rhythm. LUNGS: Clear. ABDOMEN: Soft, nontender. EXTREMITIES: Without peripheral edema. ASSESSMENT: 1. Persistent dysphagia following partial gastrectomy. 2. Upper GI with;. a. Dilation of esophageal stricture. b. Placement of covered stent for recurrent stricture. Date of procedure 08/29/2020. Surgeon: Moses Conti MD. PLAN: 1. Schedule and have consent signed for removal of the esophageal stent today. IV local sedation. Moses Conti MD, 08/31/2020, case to follow. 2. Check CBC, CMP, mag, and phos now. 3. N.p.o. at 10 a.m. 4. We will evaluate p.r.n. or in a.m. Nancy De Luna PA-C /[id number]
[2020-08-31] MEDS: SCOPOLAMINE PATCH CHECK TOP SCH (08:43)
[2020-08-31] MEDS ORDERED: Rocuronium 50 MG/5 ML Vial ONE (13:00)
[2020-08-31] MEDS ORDERED: Midazolam 1 MG/ML 2 ML SDV ONE (13:00)
[2020-08-31] MEDS ORDERED: fentaNYL 100 MCG/2 ML SDV ONE (13:00)
[2020-08-31] MEDS ORDERED: Succinylcholine 200 MG/10 ML MDV ONE (13:00)
[2020-08-31] MEDS ORDERED: Ondansetron 4 MG/2 ML SDV ONE (13:00)
[2020-08-31] MEDS ORDERED: Propofol 200 MG/20 ML SDV ONE (13:00)
[2020-08-31] MEDS ORDERED: Dexamethasone 4 MG/ML SDV ONE (13:00)
[2020-08-31] MEDS ORDERED: Benzocaine/Cetylpyridinium/Menthol Lozenge MUCMEM PRN (14:54)
[2020-09-01] MEDS: Ondansetron 4 MG/2 ML SDV IVPUSH SCH ×3 (02:03→09:27)
[2020-09-01] MEDS: Metoclopramide 10 MG/2 ML SDV IVPUSH SCH ×2 (02:04→08:36)
[2020-09-01] MEDS: Dextrose 5%-Lactated Ringers 1,000 ML IV SCH (06:01)
[2020-09-01] MEDS ORDERED: Potassium Chloride 20 MEQ in Premix Bag 1 BAG IV ONE (06:36)
[2020-09-01 07:17] VITALS: BP 126/70; PULSE 70
[2020-09-01] MEDS ORDERED: Potassium Chloride 20 MEQ, Lidocaine 1% 2 ML in Sodium Chloride 0.9% 100 ML IV ONE (08:30)
--- NOTE | 2020-09-01 14:12 | DISCH ---
ADMISSION DIAGNOSES: 1. Dysphagia, status post partial gastrectomy. 2. Diabetes. 3. Dehydration. DISCHARGE DIAGNOSES: 1. Upper GI with: a. Dilation of esophagus. b. Placement of covered stent for recurrent stricture. Date of procedure: 08/29/2020. Surgeon: Moses Conti MD. 2. Removal of covered stent for recurrent stricture, 08/31/2020. HISTORY: Carlos Gentile presented to the emergency room with nausea, vomiting, and dysphagia. He was admitted to the hospital on 08/30/2020. Carlos is a 55-year-old male who had a partial gastrectomy with persistent dysphagia and formation of strictures. After preoperative evaluation and discussion of possible risks and possible complications, he wished to proceed with surgical procedure. Procedure was on 08/29/2020. He had persistent nausea and was unable to tolerate the stent. The stent was removed on 08/31/2020. Upper endoscopy had improved. The esophagus looks like it had improved and the esophagus did remain open. Carlos was able to tolerate a step 2 diet. His oral intake was 1920. He had no emesis. He was able to be discharged to home on 09/01/2020. PHYSICAL EXAMINATION: GENERAL: Carlos is a 55-year-old male. VITAL SIGNS: Height is 5 feet 8.9 inches, weight is 148 pounds. TPR is 97.6; 70; 18; blood pressure 126/70. HEENT: Negative. NECK: Supple. HEART: Regular rate and rhythm. LUNGS: Clear. ABDOMEN: Soft, nontender. EXTREMITIES: Without peripheral edema. DISPOSITION: Discharged home. CONDITION: Stable and improving. FOLLOWUP APPOINTMENT: 09/15/2020 at 10:00 a.m. He is to be scheduled for an EGD with dilatation on 09/07/2020, IV local sedation, and to have a COVID test prior to procedure and n.p.o. after midnight. DIET: Step 2 gastric bypass diet for 1 day, then step 3. To drink 3 protein drinks daily. ACTIVITY: As tolerated. May shower. DISCHARGE INSTRUCTIONS: Notify provider if any increased pain, nausea, or vomiting. He is to resume his home medications as he was taking prior to hospital admission.
--- NOTE | 2020-09-07 13:19 | OR ---
DATE OF PROCEDURE: 08/31/2020 SURGEON: Moses Conti MD PREOPERATIVE DIAGNOSIS: Intolerance to esophagojejunal stent. POSTOPERATIVE DIAGNOSIS: Intolerance to esophagojejunal stent. OPERATIVE PROCEDURE: Upper GI endoscopy with removal of esophagojejunal stent (22462). ANESTHESIA: General. INDICATION FOR PROCEDURE: The patient is status post placement of an esophagojejunal stent for treatment of recurrent stricturing at the esophagojejunostomy. This was done 3 days ago. He has been not tolerating the presence of the stent and plan is to proceed with removal. Potential risks including bleeding and perforation were discussed, and the patient wishes to proceed. DETAILS OF PROCEDURE: The patient was taken to the operating room and placed in a supine position. After general endotracheal anesthesia was induced, he was placed in a left lateral decubitus position. The upper GI endoscope was passed orally through the length of the esophagus and the visualized stomach was then identified. The wire which resulted in pursestringing of the upper end of the stent was then grasped with an alligator forceps and the stent then removed without difficulty. The gastroscope was then reintroduced. It was noted that the stricture that had been present previously was now quite a bit wider likely related to the presence of the stent over the last 72 hours and no complications were noted. The scope was then withdrawn. The patient was taken to the recovery room in satisfactory condition. Moses Conti MD /[id number]
--- NOTE | 2020-09-07 13:43 | OR ---
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 OPERATIVE PROCEDURE: Upper gastrointestinal endoscopy with: (49612) a. Dilation of esophagojejunal anastomosis. (22498) b. Placement of covered esophagojejunal stent. (79265) ANESTHESIA: IV sedation. INDICATIONS FOR PROCEDURE: This is a 55-year-old presenting with relatively aggressive recurring stricturing at esophagojejunal anastomosis. Plan after preoperative discussion will be to proceed with an endoscopic dilation followed by placement of covered stent. Potential risks including bleeding and perforation, intolerance to the stent were all reviewed with the patient and he wishes to proceed. DETAILS OF PROCEDURE: The patient was taken to the operating room, placed in a left lateral decubitus position. IV sedation was administered, after which the upper GI endoscope was passed orally through the length of the esophagus and into the area of the stricturing esophagojejunostomy. This was fairly tight once again with the 1 cm scope not being quite able to be passed through that area. Using fluoroscopic surveillance, that anastomosis was initially dilated with 36-Spanish balloon dilator. This then allowed passage of the scope through the anastomosis and a guidewire was then placed into the jejunum and the scope withdrawn leaving the guidewire in place. An EndoMAXX fully covered esophageal stent was then deployed using fluoroscopic surveillance. This was a 120 mm long stent with a center neck of 23 mm and the flanges on the proximal and distal ends to 28 mm, which was deployed without difficulty. After removal of the wire then, the gastroscope was then placed once again and the stent appeared to be well seated and in good position. The scope was then withdrawn. Procedure was concluded. The patient was taken to the recovery room in satisfactory condition. Moses Conti MD /[id number]
== END 2020-09-01 10:45 | disposition home or self-care (01) | DRG 222 ==
LOC: JP.SDS 06:37 → JP.MS 08:45 → JP.SDS 08-30 14:08 → JP.MS 08-30 14:08
PROVIDERS: ADMIT Surgery; ATTEND Surgery
PROC: 0D758DZ Dilation of Esophagus with Intraluminal Device, Via Natural or Artificial Opening Endoscopic (ICD-10-PCS; principal; 2020-08-30)
PROC: 0DP58DZ Removal of Intraluminal Device from Esophagus, Via Natural or Artificial Opening Endoscopic (ICD-10-PCS; 2020-08-31)
DX: K22.2 Esophageal obstruction (principal); K22.8 Other specified diseases of esophagus; E11.9 Type 2 diabetes mellitus without complications; K21.9 Gastro-esophageal reflux disease without esophagitis; M10.9 Gout, unspecified; E86.0 Dehydration; Z88.1 Allergy status to other antibiotic agents; Z91.09 Other allergy status, other than to drugs and biological substances; Z79.899 Other long term (current) drug therapy; Z90.49 Acquired absence of other specified parts of digestive tract
CPT/HCPCS: 36415; 80053; 82962; 83735; 84100; 85027; 94762; A9270-GY; C1874; J0330; J1100; J1790; J2001; J2060; J2250; J2405; J2704; J2765; J3010; J3411; J3420; J3480; J3490; J7120; J7121

== ENCOUNTER 2020-09-07 09:12 | Day surgery (SDC) | payer BC, OTHER ==
[2020-09-07] MEDS ORDERED: Propofol 200 MG/20 ML SDV ONE (10:43)
[2020-09-07] MEDS ORDERED: Midazolam 1 MG/ML 2 ML SDV ONE (10:43)
[2020-09-07] MEDS ORDERED: fentaNYL 100 MCG/2 ML SDV ONE (10:43)
[2020-09-07] MEDS ORDERED: Lactated Ringers 1,000 ML IV ONE (11:00)
[2020-09-07] MEDS ORDERED: Cyanocobalamin (Vitamin B12) 1,000 MCG/ML SDV IM ONE (11:30)
[2020-09-07 12:18] VITALS: BP 114/70; PULSE 68
[2020-09-07] MEDS ORDERED: MVI, Adult with Vitamin K 10 ML, Thiamine 200 MG, Chromium/Copper/Mang/Selen/Zn 1 ML in... IV ONE ×4 (12:30)
--- NOTE | 2020-09-14 11:12 | OR ---
DATE OF PROCEDURE: 09/07/2020 SURGEON: Moses Conti MD PREOPERATIVE DIAGNOSIS: Probable stricture at esophagojejunal anastomosis. POSTOPERATIVE DIAGNOSIS: Mild stricture at esophagojejunal anastomosis. OPERATIVE PROCEDURE: Upper GI endoscopy with dilation of esophagojejunal anastomosis (12771). ANESTHESIA: IV sedation. INDICATION FOR PROCEDURE: The patient presents with some recurrent symptoms of stricturing at a recent esophagojejunal anastomosis. Plan is to proceed with an upper GI endoscopy with dilation as indicated. Potential risks including bleeding and perforation were discussed and the patient wishes to proceed. DETAILS OF PROCEDURE: The patient was taken to the operating room and placed in a left lateral decubitus position. IV sedation was administered after which the upper GI endoscope was passed orally through the length of the esophagus and into the area of the esophagojejunal anastomosis. The scope could almost be passed through that area indicating a relatively mild stricture at this point. Bard gastrointestinal balloon catheter was then centered across the anastomosis and inflated to 36-Albanian size. This was held in position for 1 minute after which the balloon catheter was deflated and withdrawn. The scope was easily passed through the anastomosis and no complications were evident and the procedure concluded. The patient was taken to the recovery room in satisfactory condition. Moses Conti MD /[id number]
== END 2020-09-07 15:44 | disposition home or self-care (01) ==
LOC: JP.SDS 09:12
PROVIDERS: ATTEND Surgery
DX: K91.89 Other postprocedural complications and disorders of digestive system (principal); K22.2 Esophageal obstruction; K21.9 Gastro-esophageal reflux disease without esophagitis; E11.9 Type 2 diabetes mellitus without complications; Z88.8 Allergy status to other drugs, medicaments and biological substances; Z01.812 Encounter for preprocedural laboratory examination; Z20.828 Contact with and (suspected) exposure to other viral communicable diseases
CPT/HCPCS: 43249; 87635; J2250; J2704; J3010; J3411; J3420; J7120; U0002

== ENCOUNTER 2020-09-14 07:30 | Day surgery (SDC) | payer BC ==
[~2020-09-14 07:30] MED LIST: Midazolam 1 MG/ML 2 ML SDV ONE; Propofol 200 MG/20 ML SDV ONE; fentaNYL 100 MCG/2 ML SDV ONE
[2020-09-14] MEDS ORDERED: Ondansetron 4 MG/2 ML SDV ONE (09:22)
[2020-09-14] MEDS ORDERED: Dexamethasone 4 MG/ML SDV ONE (09:22)
[2020-09-14] MEDS ORDERED: Lactated Ringers 1,000 ML IV SCH (09:45)
[2020-09-14] MEDS ORDERED: Cyanocobalamin (Vitamin B12) 1,000 MCG/ML SDV IM ONE (10:00)
[2020-09-14] MEDS ORDERED: MVI, Adult with Vitamin K 10 ML, Thiamine 200 MG, Chromium/Copper/Mang/Selen/Zn 1 ML in... IV ONE ×4 (11:00)
[2020-09-14 11:19] VITALS: BP 153/75; PULSE 76
--- NOTE | 2020-09-21 13:44 | OR ---
DATE OF PROCEDURE: 09/14/2020 SURGEON: Moses Conti MD PREOPERATIVE DIAGNOSIS: Dysphagia related to recurrent stricturing at his esophagojejunal anastomosis. POSTOPERATIVE DIAGNOSIS: Dysphagia related to recurrent stricturing at his esophagojejunal anastomosis. OPERATIVE PROCEDURE: Upper GI endoscopy with dilation of esophagojejunal anastomosis (22049). ANESTHESIA: IV sedation. INDICATIONS FOR PROCEDURE: The patient presents once again with some increasing dysphagia referable to the stricturing at his esophagojejunal anastomosis. He has been intolerant of stent placement recently and series of dilations with encouragement to maintain adequate oral intake in terms of nutrition as well as using some Levsin to combat most probably some element of esophageal spasm. Plan is to proceed with upper GI endoscopy with dilation as indicated. Potential risks including bleeding and perforation were discussed, and the patient wishes to proceed. DETAILS OF PROCEDURE: The patient was taken to the operating room, placed in a left lateral decubitus position. IV sedation was administered, after which the upper GI endoscope was passed orally through the length of the esophagus and into the area of the esophagojejunal anastomosis. 1 cm scope was not quite able to be passed through that area, but there was much less dense stricturing present and not much in the way of mucosal inflammation. A Bard gastrointestinal catheter was centered across the anastomosis and inflated to 36-Frisian size. This was held in position for 1 minute, after which balloon catheter was deflated and withdrawn. Scope could easily be passed through the anastomosis. No complications were noted. Following the procedure, we had a discussion with the patient and son, and we will proceed with an upper GI x-ray on Sunday, i.e. in 48 hours to check for problems such as esophageal dysmotility which may be contributing to some of his symptoms. He is instructed to use the Levsin liberally and work on especially getting good nutritional contents such as Glucerna shakes which he does like and we will see the patient after the upper GI x-ray has been completed on Sunday. Moses Conti MD /[id number]
== END 2020-09-14 11:30 | disposition home or self-care (01) ==
LOC: JP.SDS 07:30
PROVIDERS: ATTEND Surgery
DX: K91.89 Other postprocedural complications and disorders of digestive system (principal); K22.2 Esophageal obstruction; E11.9 Type 2 diabetes mellitus without complications; Z88.8 Allergy status to other drugs, medicaments and biological substances
CPT/HCPCS: 36415; 43239; 80053; 83735; 84100; 85027; J1100; J2250; J2405; J2704; J3010; J3411; J3420; J7120

== ENCOUNTER 2020-09-20 05:24 | Day surgery (SDC) | payer BC ==
[2020-09-20] MEDS ORDERED: Lactated Ringers 1,000 ML IV SCH (06:00)
[2020-09-20] MEDS ORDERED: Propofol 200 MG/20 ML SDV ONE (06:59)
[2020-09-20] MEDS ORDERED: fentaNYL 100 MCG/2 ML SDV ONE (06:59)
[2020-09-20] MEDS ORDERED: Dexamethasone 4 MG/ML SDV ONE (07:00)
[2020-09-20] MEDS ORDERED: Cyanocobalamin (Vitamin B12) 1,000 MCG/ML SDV IM ONE (07:00)
[2020-09-20] MEDS ORDERED: Ondansetron 4 MG/2 ML SDV ONE (07:00)
[2020-09-20] MEDS ORDERED: MVI, Adult with Vitamin K 10 ML, Thiamine 200 MG, Chromium/Copper/Mang/Selen/Zn 1 ML in... IV ONE ×4 (07:30)
[2020-09-20 08:52] VITALS: BP 128/77; PULSE 68
--- NOTE | 2020-09-21 15:51 | OR ---
DATE OF PROCEDURE: 09/20/2020 SURGEON: Moses Conti MD PREOPERATIVE DIAGNOSIS: Probable stricture at esophagojejunal anastomosis. POSTOPERATIVE DIAGNOSIS: Mild stricture at esophagojejunal anastomosis. OPERATIVE PROCEDURE: Upper GI endoscopy with dilation of esophagojejunal anastomosis (17876). ANESTHESIA: IV sedation. INDICATIONS FOR PROCEDURE: The patient is here for followup upper endoscopy to try to maintain adequate patency of his anastomosis between the esophagus and jejunum. Plan is to proceed with upper GI endoscopy with dilation as indicated. Potential risks including bleeding and perforation were discussed, and the patient wishes to proceed. DETAILS OF PROCEDURE: The patient was taken to the operating room and placed in a left lateral decubitus position. IV sedation was administered, after which the upper GI endoscope was passed orally through the length of the esophagus into the area of esophagojejunal anastomosis. This was somewhat narrowed with scope not quite being able to be passed across the anastomosis. Minimal mucosal inflammation was present. Bard gastrointestinal catheter was then centered across the anastomosis and inflated to 36-Portuguese size. This was held in position for 1 minute, after which balloon catheter was deflated and withdrawn. The scope could easily be passed through the anastomosis, no complications were noted, and the procedure was then concluded. The patient had an upper GI x-ray last Sunday, which showed free flow of fluid through the anastomosis with rapid emptying of the esophagus. There were some minor tertiary contractions of the esophagus. With this, he was encouraged to continue to use some Levsin prior to eating and also concentrate on high calorie of liquids, but begin to moving to finely chewed solids such as light fish and finely ground beef. Otherwise, the patient will be set up for followup on 10/06, but he is instructed to call if he feels that he needs further dilation in the interim. Moses Conti MD /[id number]
== END 2020-09-20 10:30 | disposition home or self-care (01) ==
LOC: JP.SDS 05:24
PROVIDERS: ATTEND Surgery
DX: K91.89 Other postprocedural complications and disorders of digestive system (principal); K22.2 Esophageal obstruction; Z01.812 Encounter for preprocedural laboratory examination; Z20.828 Contact with and (suspected) exposure to other viral communicable diseases
CPT/HCPCS: 43249; 87635; J1100; J2405; J2704; J3010; J3411; J3420; J7120; U0002

== ENCOUNTER 2020-10-09 17:37 | Observation (INO) | payer BC ==
[2020-10-09] MEDS ORDERED: Lactated Ringers 1,000 ML IV SCH ×3 (18:15→20:37)
[2020-10-09] MEDS ORDERED: LORazepam 2 MG/ML SDV IVPUSH ONE (18:15)
[2020-10-09] MEDS ORDERED: Ondansetron 4 MG/2 ML SDV IVPUSH ONE (18:15)
--- NOTE | 2020-10-09 18:15 | EDM.PDOC ---
ED HPI GENERAL MEDICAL PROBLEM - General Chief Complaint: Gastrointestinal Problem Stated Complaint: MEDICAL Time Seen by Provider: 10/09/20 18:00 Source of Information: Reports: Patient History Limitations: Reports: No Limitations - History of Present Illness INITIAL COMMENTS - FREE TEXT/NARRATIVE: 55-year-old male with 11-month history of recurring esophageal obstruction and strictures presents with acute inability to swallow fluids, a pressure in the upper abdomen and chest very similar to his past esophageal obstructions. This occurred after he took his medications and ate some cottage cheese. He is unable to swallow water, he is regurgitating any liquids that he tries to take for the past 4 hours. He recently had a swallow study that showed his esophagus was open. Onset: Sudden (Symptoms started fairly suddenly about 4 hours ago) Associated Symptoms: Reports: Nausea/Vomiting. Denies: Shortness of Breath - Related Data Allergies Allergy/AdvReac Type Severity Reaction Status Date / Time ciprofloxacin [From Cipro] Allergy Intermediate Rash Verified 10/09/20 17:48 ciprofloxacin HCl Allergy Intermediate Rash Verified 10/09/20 17:48 [From Cipro] dog dander Allergy Intermediate Other Verified 10/09/20 17:48 cat dander Allergy Mild Other Verified 10/09/20 17:48 pollen extracts Allergy Mild Abdominal Verified 10/09/20 17:48 Pain Home Meds: Home Meds Mecobalamin [B12 Active] 1,000 mcg PO DAILY 08/14/20 [History] Multivitamin [Multi-Vitamin Daily] 1 tab PO DAILY 08/14/20 [History] Past Medical History HEENT History: Reports: Allergic Rhinitis, Impaired Vision, Sinusitis Other HEENT History: wears glasses Gastrointestinal History: Reports: Cholelithiasis, GERD, Hiatal Hernia Genitourinary History: Reports: Renal Calculus Musculoskeletal History: Reports: Gout Endocrine/Metabolic History: Reports: Diabetes, Type II Hematologic History: Reports: B12 Deficiency - Infectious Disease History Infectious Disease History: Reports: Chicken Pox, Measles, Mumps - Past Surgical History HEENT Surgical History: Reports: Other (See Below) Other HEENT Surgeries/Procedures: eye and nose surgery GI Surgical History: Reports: Appendectomy, Cholecystectomy, EGD, Esophageal Dilatation, Janet Fundoplication, Other (See Below) Other GI Surgeries/Procedures: gastric bypass done for gastroparesis, EGD with dilatation Male Surgical History: Reports: None Endocrine Surgical History: Reports: None Musculoskeletal Surgical History: Reports: Other (See Below), Shoulder Surgery Other Musculoskeletal Surgeries/Procedures:: left elbow surgery Social & Family History - Family History Family Medical History: No Pertinent Family History - Tobacco Use Tobacco Use Status *Q: Never Tobacco User - Caffeine Use Caffeine Use: Reports: None ED ROS GENERAL - Review of Systems Review Of Systems: See Below Constitutional: Denies: Fever, Chills Respiratory: Denies: Shortness of Breath Cardiovascular: Reports: Chest Pain GI/Abdominal: Reports: Abdominal Pain Skin: Reports: No Symptoms Neurological: Reports: No Symptoms ED EXAM, GI/ABD - Physical Exam Exam: See Below Exam Limited By: No Limitations General Appearance: Alert, Mild Distress (Fairly uncomfortable) Eyes: Bilateral: Normal Appearance Head: Atraumatic Respiratory/Chest: No Respiratory Distress, Lungs Clear Cardiovascular: Regular Rate, Rhythm, Tachycardia GI/Abdominal Exam: Normal Bowel Sounds, Soft Neurological: Alert, Oriented Psychiatric: Anxious Skin Exam: Warm, Dry Course - Vital Signs Last Recorded V/S: Last Vital Signs Temp 97.0 F 10/09/20 20:59 Pulse 76 10/09/20 20:59 Resp 16 10/09/20 20:59 BP 129/70 10/09/20 20:59 Pulse Ox 100 10/09/20 20:59 - Orders/Labs/Meds Orders: Active Orders 24 hr Category Date Time Status Lactated Ringers [Ringers, Lactated] 1,000 ml Med 10/09/20 18:15 Active IV ASDIRECTED Lactated Ringers [Ringers, Lactated] 1,000 ml Med 10/09/20 19:30 Active IV ASDIRECTED Medication Orders Hydromorphone HCl (Dilaudid) 1 mg IVPUSH Q1H PRN PRN Reason: Pain Last Admin: 10/09/20 21:23 Dose: 1 mg Documented by: DAVID Lactated Ringer's (Ringers, Lactated) 1,000 mls @ 1,000 mls/hr IV ASDIRECTED SHELLY Last Admin: 10/09/20 18:22 Dose: 1,000 mls/hr Documented by: MITZY Lactated Ringer's (Ringers, Lactated) 1,000 mls @ 1,000 mls/hr IV ASDIRECTED SHELLY Last Admin: 10/09/20 19:17 Dose: 1,000 mls/hr Documented by: ROMI Lactated Ringer's (Ringers, Lactated) 1,000 mls @ 250 mls/hr IV ASDIRECTED SHELLY Stop: 10/10/20 00:36 Last Admin: 10/09/20 20:48 Dose: 250 mls/hr Documented by: STEPHANIE Multivitamins/Minerals 10 ml/Thiamine HCl 200 mg/ Chromium/Copper/Manganese/Seleni/Zn 1 ml/ Lactated Ringer's 1,013 mls @ 250 mls/hr IV ONETIME ONE Stop: 10/10/20 05:03 Dextrose/Lactated Ringer's (Dextrose 5%-Lactated Ringers) 1,000 mls @ 150 mls/hr IV ASDIRECTED [facility] Ondansetron HCl (Zofran) 4 mg IVPUSH Q4H PRN PRN Reason: Nausea/Vomiting Labs: Laboratory Tests 10/09/20 Range/Units 19:05 SARS CoV-2 RNA Rapid DESTINEE Negative Meds: Medications Generic Name Dose Route Start Last Admin Trade Name Franciscoq PRN Reason Stop Dose Admin Hydromorphone HCl 1 mg 10/09/20 20:40 10/09/20 21:23 Dilaudid IVPUSH 1 mg Q1H PRN Administration Pain Lactated Ringer's 1,000 mls @ 1,000 mls/hr 10/09/20 18:15 10/09/20 18:22 Ringers, Lactated IV 1,000 mls/hr ASDIRECTED SHELLY Administration Lactated Ringer's 1,000 mls @ 1,000 mls/hr 10/09/20 19:30 10/09/20 19:17 Ringers, Lactated IV 1,000 mls/hr ASDIRECTED SHELLY Administration Lactated Ringer's 1,000 mls @ 250 mls/hr 10/09/20 20:37 10/09/20 20:48 Ringers, Lactated IV 10/10/20 00:36 250 mls/hr ASDIRECTED SHELLY Administration Multivitamins/Minerals 10 ml/ 1,013 mls @ 250 mls/hr 10/10/20 01:00 Thiamine HCl 200 mg/ Chromium/ IV 10/10/20 05:03 Copper/Manganese/Seleni/Zn 1 ONETIME ONE ml/ Lactated Ringer's Dextrose/Lactated Ringer's 1,000 mls @ 150 mls/hr 10/10/20 05:00 Dextrose 5%-Lactated Ringers IV ASDIRECTED [facility] Ondansetron HCl 4 mg 10/09/20 20:40 Zofran IVPUSH Q4H PRN Nausea/Vomiting Discontinued Medications Generic Name Dose Route Start Last Admin Trade Name Francisco Javier PRN Reason Stop Dose Admin Lorazepam 0.5 mg 10/09/20 18:15 10/09/20 18:31 Ativan IVPUSH 10/09/20 18:16 0.5 mg ONETIME ONE Administration Ondansetron HCl 4 mg 10/09/20 18:15 10/09/20 18:33 Zofran IVPUSH 10/09/20 18:16 4 mg ONETIME ONE Administration - Re-Assessments/Exams Free Text/Narrative Re-Assessment/Exam: 10/09/20 18:14 Patient continued to persistently reflux and vomit all the clear liquids in his esophagus. He is very uncomfortable. Discussed with Dr. Conti, he wants to set him up for an EGD tomorrow morning at 7 AM after 2 L of LR. After IV is established he will be also given 0.5 of Ativan and 4 mg of Zofran. 10/09/20 22:57 Patient became much more relaxed after the medication but his symptoms persisted and he was uncomfortable. Decision was made to admit the patient for hydration and symptom control until he is procedure tomorrow morning, Covid was negative. Departure - Departure Time of Disposition: 20:39 Disposition: Admitted As Inpatient 67 Clinical Impression: Esophageal obstruction - Discharge Information Sepsis Event Note (ED) - Evaluation Sepsis Screening Result: No Definite Risk - Focused Exam Vital Signs: Vital Signs Temp Pulse Resp BP Pulse Ox 10/09/20 20:03 79 131/75 98 10/09/20 17:41 97.6 F 110 H 16 133/89 98 - My Orders Last 24 Hours: My Active Orders 10/09/20 18:15 Lactated Ringers [Ringers, Lactated] 1,000 ml IV ASDIRECTED 10/09/20 19:30 Lactated Ringers [Ringers, Lactated] 1,000 ml IV ASDIRECTED - Assessment/Plan Last 24 Hours: My Active Orders 10/09/20 18:15 Lactated Ringers [Ringers, Lactated] 1,000 ml IV ASDIRECTED 10/09/20 19:30 Lactated Ringers [Ringers, Lactated] 1,000 ml IV ASDIRECTED
[2020-10-09] MEDS ORDERED: HYDROmorphone 1 MG/ML Syringe IVPUSH PRN (20:40)
[2020-10-09] MEDS ORDERED: Ondansetron 4 MG/2 ML SDV IVPUSH PRN (20:40)
[2020-10-10] MEDS ORDERED: Thiamine 200 MG/2 ML MDV ONE (00:18)
[2020-10-10] MEDS ORDERED: MVI, Adult with Vitamin K 10 ML SDV ONE (00:19)
[2020-10-10] MEDS ORDERED: MVI, Adult with Vitamin K 10 ML, Thiamine 200 MG, Chromium/Copper/Mang/Selen/Zn 1 ML in... IV ONE ×4 (01:00)
[2020-10-10] MEDS ORDERED: Dextrose 5%-Lactated Ringers 1,000 ML IV SCH (05:00)
[2020-10-10] MEDS ORDERED: Propofol 200 MG/20 ML SDV ONE (06:54)
[2020-10-10] MEDS ORDERED: Midazolam 1 MG/ML 2 ML SDV ONE (06:54)
[2020-10-10] MEDS ORDERED: Dexamethasone 4 MG/ML SDV ONE (07:07)
[2020-10-10 11:01] VITALS: BP 137/77; PULSE 72
--- NOTE | 2020-10-13 11:39 | OR ---
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 POSTOPERATIVE DIAGNOSES: 1. 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 2. Retained food in the distal esophagus. OPERATIVE PROCEDURE: Upper GI endoscopy with: 1. Dilation of esophagojejunostomy (77883). 2. Removal of foreign body (ingested food) in distal esophagus ([id number]). ANESTHESIA: IV sedation. INDICATION FOR PROCEDURE: The patient presents with some retained food and marked dysphagia and he has had multiple dilations of esophagojejunostomy in the past and he was admitted for IV hydration along with vitamin replenishment, and at this point, he is to undergo upper GI endoscopy with dilation as indicated. Potential risks of the procedure including bleeding and perforation were discussed, and the patient wishes to proceed. DETAILS OF PROCEDURE: The patient was taken to the operating room and placed in a left lateral decubitus position. IV sedation was administered, after which the upper GI endoscope was passed orally through the length of esophagus. Some retained food was noted to be within the distal esophagus, which initially occluded visualization of the esophagojejunostomy. Initially, a 30-Tajik dilator was placed using fluoroscopic control across the anastomosis and inflated. This was then removed, and following this, a 36-Tajik dilator was placed and injected to level up to 2. This was then removed and the scope was then easily passed through the anastomosis. The retained food within the esophagus was then displaced distally into the jejunum and the procedure then concluded. There were no evident complications. Moses Conti MD /[id number]
--- NOTE | 2020-10-13 14:15 | DISCH ---
FINAL DIAGNOSES: 1. 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 2. Retained food in the distal esophagus. 3. Type 2 diabetes mellitus, in remission, status post esophagogastrectomy with Yasmeen-en-Y reconstruction. OPERATIVE PROCEDURES: Done on 10/10, upper GI endoscopy with: 1. Dilation of esophagojejunostomy. 2. Removal of retained food within the esophagus. SUMMARY: This is a 55-year-old status post esophagogastrectomy with Yasmeen-en-Y reconstruction for severe diabetic gastroparesis. He has had notable strictures in the past, who presents now with some stricturing of the esophagojejunostomy overnight and was admitted for hydration and vitamin replenishment, and underwent an upper endoscopy with dilation as well as removal of some retained food in the distal esophagus on 10/10. Of note, the last dilation was a little over 3 weeks ago, and at this point, he appeared to be gradually doing better in terms of strictures. The patient has only lost 1 pound in the last 3 weeks, so nutritionally, he seemed to be stabilizing as well. The plan will be to have the patient continue to augment his oral intake with supplements such as Glucerna, and otherwise, we will see him back in followup on 10/20/2020. May continue the full liquid diet for the next 5 days and then switching to soft solids as tolerated thereafter. Call if he feels that he needs to be dilated again prior to that appointment. /[id number]
== END 2020-10-10 12:00 | disposition home or self-care (01) ==
LOC: JP.ED 17:37 → JP.MS 20:29
PROVIDERS: ADMIT Surgery; ATTEND Surgery
DX: K91.89 Other postprocedural complications and disorders of digestive system (principal); K22.2 Esophageal obstruction; T18.128A Food in esophagus causing other injury, initial encounter; E11.9 Type 2 diabetes mellitus without complications; Z01.812 Encounter for preprocedural laboratory examination; Z20.828 Contact with and (suspected) exposure to other viral communicable diseases; Z98.84 Bariatric surgery status; Z88.8 Allergy status to other drugs, medicaments and biological substances; Z91.048 Other nonmedicinal substance allergy status; Z79.899 Other long term (current) drug therapy; Z98.890 Other specified postprocedural states
CPT/HCPCS: 96361; 96365; 96366; 96374; 96375; 99285-25; G0378; J1100; J1170; J2060; J2250; J2405; J2704; J3411; J7120; J7121; U0002

== ENCOUNTER 2020-10-28 18:16 | Emergency (ER) | payer BC | END 2020-10-28 18:20 | disposition left against medical advice (07) | LOC: JP.ED 18:16 | DX: Z53.21 Procedure and treatment not carried out due to patient leaving prior to being seen by health care provider (principal) ==

== ENCOUNTER 2020-10-28 19:15 | Emergency (ER) | payer BC ==
--- NOTE | 2020-10-28 20:30 | EDM.PDOC ---
ED HPI GENERAL MEDICAL PROBLEM - General Chief Complaint: Gastrointestinal Problem Stated Complaint: FEELS LIKE HE IS CHOKING Time Seen by Provider: 10/28/20 20:22 Source of Information: Reports: Patient, Family, Old Records, RN Notes Reviewed History Limitations: Reports: No Limitations - History of Present Illness INITIAL COMMENTS - FREE TEXT/NARRATIVE: 55-year-old gentleman presents emergency department with a complaint of difficulty swallowing he has an extensive history of dysphagia with esophageal stricture he was recently dilated on October 30. He was eating pured food felt like it got stuck difficulty swallowing his secretions however all of his symptoms have resolved at this time he is able to swallow his secretions without difficulty denies pain Pain Score (Numeric/FACES): 0 - Related Data Allergies Allergy/AdvReac Type Severity Reaction Status Date / Time ciprofloxacin [From Cipro] Allergy Intermediate Rash Verified 10/28/20 19:50 ciprofloxacin HCl Allergy Intermediate Rash Verified 10/28/20 19:50 [From Cipro] dog dander Allergy Intermediate Other Verified 10/28/20 19:50 cat dander Allergy Mild Other Verified 10/28/20 19:50 pollen extracts Allergy Mild Abdominal Verified 10/28/20 19:50 Pain Home Meds: Home Meds Mecobalamin [B12 Active] 1,000 mcg PO DAILY 08/14/20 [History] Multivitamin [Multi-Vitamin Daily] 1 tab PO DAILY 08/14/20 [History] Past Medical History HEENT History: Reports: Allergic Rhinitis, Impaired Vision, Sinusitis Other HEENT History: wears glasses Gastrointestinal History: Reports: Cholelithiasis, GERD, Hiatal Hernia Genitourinary History: Reports: Renal Calculus Musculoskeletal History: Reports: Gout Psychiatric History: Reports: Depression Endocrine/Metabolic History: Reports: Diabetes, Type II Hematologic History: Reports: B12 Deficiency - Infectious Disease History Infectious Disease History: Reports: Chicken Pox, Measles, Mumps - Past Surgical History HEENT Surgical History: Reports: Other (See Below) Other HEENT Surgeries/Procedures: eye and nose surgery GI Surgical History: Reports: Appendectomy, Cholecystectomy, EGD, Esophageal Dilatation, Janet Fundoplication, Other (See Below) Other GI Surgeries/Procedures: gastric bypass done for gastroparesis, EGD with dilatation Male Surgical History: Reports: None Endocrine Surgical History: Reports: None Musculoskeletal Surgical History: Reports: Other (See Below), Shoulder Surgery Other Musculoskeletal Surgeries/Procedures:: left elbow surgery Social & Family History - Family History Family Medical History: No Pertinent Family History - Tobacco Use Tobacco Use Status *Q: Never Tobacco User - Caffeine Use Caffeine Use: Reports: Coffee - Recreational Drug Use Recreational Drug Use: No ED ROS GENERAL - Review of Systems Review Of Systems: See Below Constitutional: Reports: No Symptoms Respiratory: Reports: No Symptoms Cardiovascular: Reports: No Symptoms GI/Abdominal: Reports: Difficulty Swallowing ED EXAM, GI/ABD - Physical Exam Exam: See Below Exam Limited By: No Limitations General Appearance: Alert, WD/WN, No Apparent Distress GI/Abdominal Exam: Soft, Non-Tender Course - Vital Signs Last Recorded V/S: Last Vital Signs Temp 97.1 F 10/28/20 19:50 Pulse 107 H 10/28/20 19:50 Resp 18 10/28/20 19:50 BP 139/86 10/28/20 19:50 Pulse Ox 97 10/28/20 19:50 Departure - Departure Time of Disposition: 20:29 Disposition: Home, Self-Care 01 Condition: Fair Clinical Impression: Dysphasia - Discharge Information Referrals: PCP,None [Primary Care Provider] - Additional Instructions: Keep your follow-up appointments with your general surgeon and your primary care, call or return to the emergency department worsening of symptoms Sepsis Event Note (ED) - Evaluation Sepsis Screening Result: No Definite Risk - Focused Exam Vital Signs: Vital Signs Temp Pulse Resp BP Pulse Ox 10/28/20 19:50 97.1 F 107 H 18 139/86 97 10/28/20 19:43 97.1 F 107 H 18 139/86 97 - Assessment/Plan Plan: Assessment Acuity = acute Site and laterality = dysphagia Etiology = esophageal stricture Manifestations = none Location of injury = Home Lab values = none Plan Because of his symptoms have resolved he is able to swallow secretions without difficulty having continue to follow-up with his general surgeon This note was dictated using [employer] voice recognition software please call with any questions on syntax or grammar.
[2020-10-28 22:32] VITALS: BP 139/86; PULSE 107
== END 2020-10-28 20:53 | disposition home or self-care (01) ==
LOC: JP.ED 19:15
DX: R13.10 Dysphagia, unspecified (principal); E11.9 Type 2 diabetes mellitus without complications; Z88.1 Allergy status to other antibiotic agents; Z91.048 Other nonmedicinal substance allergy status
CPT/HCPCS: 99283

== ENCOUNTER 2021-03-05 06:03 | Emergency (ER) | payer BC, MEDICAID ==
[2021-03-05 06:17] VITALS: BP 134/80; PULSE 93
[2021-03-05] MEDS ORDERED: methylPREDNISolone Sodium Succinate 125 MG/2 ML SDV IVPUSH ONE (06:43)
[2021-03-05] MEDS ORDERED: Ketorolac 30 MG/ML SDV IVPUSH ONE (06:43)
--- NOTE | 2021-03-05 06:47 | EDM.PDOC ---
ED HPI GENERAL MEDICAL PROBLEM - General Chief Complaint: General Stated Complaint: FOOT PAIN Time Seen by Provider: 03/05/21 06:30 Source of Information: Reports: Patient History Limitations: Reports: No Limitations - History of Present Illness INITIAL COMMENTS - FREE TEXT/NARRATIVE: 55-year-old male with intense pain in the left large toe MP joint and left elbow for the past 48 hours. He had abdominal surgery on Sunday. Does have an extensive past history of either gout or pseudogout, but did take colchicine last night and oxycodone. This morning he still having pain especially in his left elbow. The bursa area is swollen and reddened, and there is a reddened area over the radial aspect of the MP joint of the large toe on the left foot. No fevers or chills, he is doing well post surgery. Onset: Gradual Duration: Day(s): Location: Reports: Upper Extremity, Left, Lower Extremity, Left Associated Symptoms: Denies: Fever/Chills, Headaches, Loss of Appetite, Nausea/Vomiting, Shortness of Breath Left Elbow Pain Score (Numeric/FACES): 10 Left Toe-Hailux Pain Score (Numeric/FACES): 10 - Related Data Allergies Allergy/AdvReac Type Severity Reaction Status Date / Time ciprofloxacin [From Cipro] Allergy Intermediate Facial Verified 03/05/21 06:17 Swelling ciprofloxacin HCl Allergy Intermediate Facial Verified 03/05/21 06:17 [From Cipro] Swelling dog dander Allergy Intermediate Other Verified 03/05/21 06:17 cat dander Allergy Mild Other Verified 03/05/21 06:17 pollen extracts Allergy Mild Abdominal Verified 03/05/21 06:17 Pain Home Meds: Home Meds Multivitamin [Multi-Vitamin Daily] 1 tab PO DAILY 08/14/20 [History] Acetaminophen 650 mg PO ASDIRECTED PRN 03/05/21 [History] Cetirizine [ZyrTEC] 10 mg PO DAILY 03/05/21 [History] Diphenoxylate HCl/Atropine [Lomotil] 0.5 tab PO QID PRN 03/05/21 [History] Fluticasone Propionate [Flonase] 2 sprays NASBOTH BID PRN 03/05/21 [History] Gabapentin [Neurontin] 300 mg PO TID 03/05/21 [History] Montelukast [Singulair] 10 mg PO BEDTIME 03/05/21 [History] Omeprazole 40 mg PO BID 03/05/21 [History] Ondansetron [Zofran ODT] 4 mg PO ASDIRECTED PRN 03/05/21 [History] Sucralfate [Carafate] 1 gm PO QID 03/05/21 [History] miSOPROStoL [Cytotec] 200 mcg PO QID 03/05/21 [History] oxyCODONE 5 mg PO Q6H PRN 03/05/21 [History] Past Medical History HEENT History: Reports: Allergic Rhinitis, Impaired Vision, Sinusitis Other HEENT History: wears glasses Gastrointestinal History: Reports: Cholelithiasis, GERD, Hiatal Hernia Genitourinary History: Reports: Renal Calculus Musculoskeletal History: Reports: Gout Psychiatric History: Reports: Depression Endocrine/Metabolic History: Reports: Diabetes, Type II Hematologic History: Reports: B12 Deficiency - Infectious Disease History Infectious Disease History: Reports: Chicken Pox, Measles, Mumps - Past Surgical History HEENT Surgical History: Reports: Other (See Below) Other HEENT Surgeries/Procedures: eye and nose surgery GI Surgical History: Reports: Appendectomy, Cholecystectomy, EGD, Esophageal Dilatation, Janet Fundoplication, Other (See Below) Other GI Surgeries/Procedures: gastric bypass done for gastroparesis, EGD with dilatation Male Surgical History: Reports: None Endocrine Surgical History: Reports: None Musculoskeletal Surgical History: Reports: Other (See Below), Shoulder Surgery Other Musculoskeletal Surgeries/Procedures:: left elbow surgery Social & Family History - Family History Family Medical History: No Pertinent Family History - Tobacco Use Tobacco Use Status *Q: Never Tobacco User - Caffeine Use Caffeine Use: Reports: None - Recreational Drug Use Recreational Drug Use: No ED ROS GENERAL - Review of Systems Review Of Systems: See Below Constitutional: Denies: Fever, Chills Respiratory: Denies: Shortness of Breath Cardiovascular: Denies: Chest Pain GI/Abdominal: Reports: Abdominal Pain (A small amount of postsurgical pain which is unchanged) : Reports: No Symptoms Musculoskeletal: Reports: Other (Left elbow and left large MP joint pain) Skin: Reports: Erythema (Erythematous present as mentioned) Neurological: Reports: No Symptoms Psychiatric: Reports: Anxiety ED EXAM, GENERAL - Physical Exam Exam: See Below Exam Limited By: No Limitations General Appearance: Alert, No Apparent Distress (Looks uncomfortable but not distressed, splinting the left arm to avoid moving the left elbow) Head: Atraumatic Respiratory/Chest: No Respiratory Distress Cardiovascular: Regular Rate, Rhythm GI/Abdominal: Other (Surgical scars are well-healed, bowel sounds are normal) Extremities: Other (Patient has some mild to moderate olecranon bursa swelling of the left elbow and its very tender to palpation, slightly erythematous but not warm. He also has some erythema and pain with movement of the left large toe MP joint) Neurological: Alert, Oriented Psychiatric: Anxious Course - Vital Signs Last Recorded V/S: Last Vital Signs Temp 97.8 F 03/05/21 06:15 Pulse 93 03/05/21 06:15 Resp 18 03/05/21 06:15 BP 134/80 03/05/21 06:15 Pulse Ox 99 03/05/21 06:15 - Orders/Labs/Meds Meds: Medications Discontinued Medications Generic Name Dose Route Start Last Admin Trade Name Freq PRN Reason Stop Dose Admin Ketorolac Tromethamine 30 mg 03/05/21 06:43 03/05/21 06:52 Ketorolac 30 Mg/Ml Sdv IVPUSH 03/05/21 06:44 30 mg ONETIME ONE Administration Methylprednisolone Sodium Succinate 125 mg 03/05/21 06:43 03/05/21 06:55 Methylprednisolone Sodium Succinate 125 Mg/2 Ml Sdv IVPUSH 03/05/21 06:44 125 mg ONETIME ONE Administration - Re-Assessments/Exams Free Text/Narrative Re-Assessment/Exam: 03/05/21 06:52 Patient already has oxycodone and is taking colchicine. There are some limitations to treatment, and after discussing with the patient and his son we elected to give him 125 mg of Solu-Medrol IV along with 30 mg of IV Toradol. He can continue his colchicine and oxycodone, and recheck with his primary provider on Sunday or Sunday if not improving satisfactorily. 03/05/21 07:15 Patient tolerated the injection of medications well, he was discharged with 10 additional doses of Percocet and given a sling for his left arm. Recheck on Sunday or Sunday. Departure - Departure Time of Disposition: 07:24 Disposition: Home, Self-Care 01 Clinical Impression: Olecranon bursitis of left elbow Gout attack Qualifiers: Gout site: toe Gout etiology: unspecified cause Laterality: left Qualified Code(s): M10.9 - Gout, unspecified - Discharge Information Instructions: Elbow Bursitis Referrals: Caty Tavera DO [Primary Care Provider] - Forms: ED Department Discharge Care Plan Goals: Continue your current medications, wear sling for comfort and use Percocet for extra pain control. Recheck on Sunday or Sunday if not improving. Sepsis Event Note (ED) - Evaluation Sepsis Screening Result: No Definite Risk
== END 2021-03-05 07:24 | disposition home or self-care (01) ==
LOC: JP.ED 06:03
DX: M10.9 Gout, unspecified (principal); M70.22 Olecranon bursitis, left elbow; K21.9 Gastro-esophageal reflux disease without esophagitis; E11.9 Type 2 diabetes mellitus without complications; Z88.1 Allergy status to other antibiotic agents; Z91.048 Other nonmedicinal substance allergy status; Z79.899 Other long term (current) drug therapy
CPT/HCPCS: 96374; 96375; 99283; J1885; J2930

== ENCOUNTER 2023-06-04 15:07 | Emergency (ER) | payer MEDICAID ==
[2023-06-04] MEDS ORDERED: Naloxone 0.4 MG/ML SDV IVPUSH PRN ×2 (15:25→16:26)
[2023-06-04] MEDS ORDERED: fentaNYL 50 MCG/ML SDV IVPUSH ONE ×2 (15:25→15:48)
[2023-06-04] MEDS ORDERED: Sodium Chloride 0.9% 1,000 ML IV ONE (15:28)
[2023-06-04 15:35] LABS: BASOPHILS ABSOLUTE AUTO 0.04 K/uL (0.00-0.10); BASOPHILS PERCENT AUTO 0.5 % (0.1-1.3); EOSINOPHILS ABSOLUTE AUTO 0.38 K/uL (0.00-0.40); EOSINOPHILS PERCENT AUTO 4.6 % (0.0-5.4); HEMATOCRIT 43.2 % (38.4-49.7); HEMOGLOBIN 15.4 g/dL (12.9-16.9); IMMATURE GRAN ABSOLUTE AUTO 0.03 K/uL (0.00-0.23); IMMATURE GRAN PERCENT AUTO 0.4 % (0.0-0.7); LYMPHOCYTES ABSOLUTE AUTO 2.91 K/uL (0.8-3.3); LYMPHOCYTES PERCENT AUTO 35.1 % (11.4-47.7); MEAN CORPUSCULAR HEMOGLOBIN 32.8 pg (31.6-35.5); MEAN CORPUSCULAR HGB CONC 35.6 g/dL (31.6-35.5); MEAN CORPUSCULAR VOLUME 92.1 fL (81.4-99.0); MONOCYTES ABSOLUTE AUTO 0.58 K/uL (0.20-0.90); NEUTROPHILS ABSOLUTE AUTO 4.36 K/uL (1.0-7.6); NEUTROPHILS PERCENT AUTO 52.4 % (40.0-78.1); PLATELET COUNT,PLT 207 K/uL (130-375); RED BLOOD CELL COUNT 4.69 M/uL (4.14-5.76); WHITE BLOOD CELL COUNT,WBC 8.3 K/uL (3.2-11.0)
[2023-06-04 15:51] LABS: CALCIUM 9.1 mg/dL (8.5-10.1); CREATININE 0.7 mg/dL (0.8-1.3); EST CRCL DRUG DOSING (CG) 108.86 mL/min; POTASSIUM,K 3.8 mmol/L (3.6-5.2)
[2023-06-04 15:52] LABS: ANION GAP 14.8 mmol/L (5.0-14.0)
[2023-06-04] MEDS ORDERED: cefTRIAXone 1 GM Vial IM ONE (16:04)
[2023-06-04] MEDS ORDERED: cefTRIAXone 2 GM in Sodium Chloride 0.9% 50 ML IV ONE (16:13)
[2023-06-04] MEDS ORDERED: HYDROmorphone 0.5 MG/0.5 ML Syringe IVPUSH ONE (16:26)
[2023-06-04 16:40] VITALS: BP 143/79; PULSE 72
== END 2023-06-04 16:48 | disposition other institution (70) ==
LOC: JP.ED 15:07
DX: S68.120A Partial traumatic metacarpophalangeal amputation of right index finger, initial encounter (principal); K21.9 Gastro-esophageal reflux disease without esophagitis; E11.9 Type 2 diabetes mellitus without complications; Z79.899 Other long term (current) drug therapy; Z88.1 Allergy status to other antibiotic agents; Z91.048 Other nonmedicinal substance allergy status; W28.XXXA Contact with powered lawn mower, initial encounter
CPT/HCPCS: 36415; 73130; 80048; 85025; 96361; 96365; 96375; 99284; J0696; J1170; J3010; J3490; J7030